=== PATIENT | female | born 2000 | race Caucasian/White ===

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

== ENCOUNTER 2018-06-30 09:07 | Inpatient (IN) ==
[2018-06-30] MEDS ORDERED: OXYTOCIN 30 UNITS/500 ML BAG IV PRN ×3 (10:30→20:33)
[2018-06-30] MEDS ORDERED: LACTATED RINGER'S 1,000 ML IV PRN ×3 (10:30→13:29)
--- NOTE | 2018-06-30 10:55 | History & Physical Report ---
Date of Service June 30, 2018 Assessment & Plan (1) Gestational hypertension: 17yo presenting at 37.4 weeks EGA with elevated BP and a severe headache and nausea of 3 days duration. -Currently meets criteria for gestational HTN -Will workup for preeclampsia- CBC, CMP, urine pr/cr -will induce with suero and anticipate History of Present Illness Chief Complaint: headache, nausea, dizzy, concerned about blood pressure Primary Care Provider: NO PCP Pt is a 17yo presenting at 37.4 weeks EGA with elevated BP and a severe headache and nausea of 3 days duration. Denies changes to vision, RUQ pain or LE swelling. She has an DARRELL of 07/17/2018 confirmed by first trimester US. Her has been complicated by a a dx of asthma treated with PRN albuterol and Ryan's/ Hypothyroidism treated with Levothyroxine 50mcg daily. She is B+, antibody negative, rubella immune, HbsAg negative, negative Glucose screens and negative Panorama screen. 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 Hypothyroid MTHFR gene mutation Seizures Social History marital status: Single Current Living Situation: Parent Other Information That Helps Us Care for You: No Feels Safe at Home: Yes Smoking Status: Never smoker Do You Dip or Chew Tobacco: No Second Hand Exposure: No Tobacco Cessation Education Requested by Patient: No Hx Alcohol Use: No Hx Substance Use: No Beliefs That Will Affect Care: None Preferred Language: Romansh Communication Ability: Effective Chrome Plater Required: No Review of Systems Eyes: no problem reported Ear, Nose, Mouth, Throat: no nasal congestion Respiratory: no dyspnea Cardiovascular: no chest pain, no edema and no calf pain Gastrointestinal: + nausea; no vomiting Neurologic: + headache(s) Physical Exam 2 Vital Signs (Past 24 Hours): Last Vital Signs Temp 37.0 C 06/30/18 09:24 Pulse 96 H 06/30/18 10:25 Resp 20 06/30/18 09:24 BP 154/99 H 06/30/18 10:25 Eyes: EOM intact bilaterally Respiratory: normal respiratory effort, lungs clear to auscultation Cardiovascular: RRR, no murmur, no edema Gastrointestinal (Abdomen): Percussion/Palpation: abdomen nontender Musculoskeletal: Extremities: extremities normal to inspection Neurologic: CN's II-XI intact bilaterally, deep tendon reflexes 2+ bilaterally (NO clonus) and moves all extremities Cranial Nerves: PERRL and EOM intact bilaterally Genitourinary: Manual OB Exam: + cervical dilation 1 cm, + cervical effacement 70% and + station (-2) Supervising Physician Co-Signing Physician Notes Resident Physician Supervision Note: I was present with Dr. Love during the history and exam. I discussed the case with the resident and agree with the findings and plan as documented in the note. Any exceptions or clarifications are listed here: 17yo at 37wks presented as noted above. Was seen in office last week with elevated bp. Today' s bp are by >4hr and meet criteria for gestational hypertension at least and warrant moving towards delivery. Pt having GALVIN but did not try any meds. She feels unwell, dizzy and nausea also since the weekend and came to hospital without calling and was sent to L&D. She is agreeable to induction. Discussed suero ripening and pitocin. May meet criteria for mild preeclampsia, labs and more data not available yet. Pt aware that would not change our recommendations for induction. Will offer tylenol. Fhts categ 1. SVE /-2 med mid. EFW 7#. Cephalic by Leopolds and on sve. DTRs +2, no clonus, no ruq or epig pain. LE edema trace. OBH: g1 GYNH: nl paps, no stds PMH: hypothyroid, asthma, MTHFR mutation, h/o cerebral hemorrhage at her delivery and then febrile seizure at age 1. no residual issues with either of those past dx. PSH: none Allg: nkda Meds: levothyroxine 50mcg, albuterol prn. SH: no tob/etoh/drugs FH: no brian anom or mr PROCEDURE: speculum placed. ring forcep to ant cx lip. suero through os and balloon inflated with 40cc water. spec removed. suero taped to leg. pt maite well. A/ 37wk ega, gest htn P/ induction with suero and pitocin. fhts categ 1. labs pending. Documented By: Caprice Russo MD, FACOG
[2018-06-30 11:01] LABS: Hematocrit (blood only) 39.9 % (37-47); Hemoglobin 13.9 g/dL (12.0-16.0); Mean Corpuscular Volume 94.8 fL (80-100); Mean Platelet Volume 11.8 fL (7.4-10.4); Platelet Count 179 K/uL (130-400); RDW Coefficient of Variation 12.9 % (11.5-14.5); Red Blood Count 4.21 M/uL (4.2-5.4); White Blood Count 8.65 K/uL (4.8-10.8)
[2018-06-30] MEDS ORDERED: ACETAMINOPHEN SOL 650 MG/20.3 ML UDC PO ONE (11:11)
[2018-06-30 11:16] LABS: Mean Corpuscular Hgb Conc 34.8 g/dL (32-36)
[2018-06-30] MEDS: LACTATED RINGER'S 1,000 ML IV SCH ×2 (11:16→14:33)
[2018-06-30 11:19] LABS: Albumin Level 2.7 gm/dl (3.4-5.0); BUN Creatinine Ratio 10.9 (10-20); Calcium 9.1 mg/dl (8.5-10.1); Creatinine Clr Calc Pharmacy 131.6 ml/min; Est GFR (African American) 140.7; Est GFR (Non-African American) 121.4; Potassium 4.4 mmol/L (3.5-5.1)
[2018-06-30 11:21] LABS: Albumin Globulin Ratio 0.6 (0.9-2); Bilirubin,Total 0.2 mg/dl (0.2-1); Globulin 4.3 gm/dl (2.5-4.0)
[2018-06-30] MEDS ORDERED: NIFEdipine 10 MG CAP PO STA ×2 (11:51→19:09)
[2018-06-30 11:57] LABS: Total Protein Urine Random 70.4 mg/dl (0-11.9)
[2018-06-30] MEDS ORDERED: NIFEdipine 10 MG CAP ONE (12:05)
[2018-06-30] MEDS ORDERED: PROMETHAZINE HCL 25 MG in SODIUM CHLORIDE 0.9% 50 ML IV STA (12:05)
--- NOTE | 2018-06-30 12:17 | Obstetrical Progress Note ---
Date of Service June 30, 2018 Assessment & Plan (1) Gestational hypertension: some bps in severe range and po procardia given. most recent bp was even before procardia and was better. pt anxious. given her nausea will give phergan and offered to use stadol or epidural for pain management when she wants. labs normal. urine protein/creat ration just at .3. If severe bps persist with or without akhtar's may need to initiate magnesium. patient and mother aware. fhts categ 1 (2) 37 weeks gestation of : Subjective pt notes nausea and asking for med. feeling strong cramps. no rom. Physical Exam 2 Vital Signs (Past 24 Hours): Last Vital Signs Temp 37.0 C 06/30/18 11:22 Pulse 98 H 06/30/18 12:01 Resp 20 06/30/18 11:22 BP 148/101 H 06/30/18 12:01 Constitutional: WD/WN, vitals as above Genitourinary: Manual OB Exam: + cervical dilation (balloon still through ext os ) 2 cm, + cervical effacement (75) and + station (no able to assess well with balloon) OB Exam Monitor Tracing: + external FHT monitor used (135 mod variability), + external uterine monitor used (q2-4), + category I and + normal FHT variability
[2018-06-30] MEDS ORDERED: BUPIVACAINE 0.25% 30 ML VIAL ONE (12:30)
[2018-06-30] MEDS ORDERED: fentaNYL citrate 100 MCG/2 ML VIAL ONE ×2 (12:30→18:40)
[2018-06-30] MEDS ORDERED: ePHEDrine sulfate 50 MG/ML AMP ONE (12:30)
[2018-06-30] MEDS ORDERED: fentaNYL 2MCG/ML ROPIV 1.25MG/ML 100 ML BAG EPI ONE (12:31)
--- NOTE | 2018-06-30 13:27 | Anesthesiology Consultation ---
Date of Service June 30, 2018 Assessment & Plan (1) Encounter for pre-operative examination: Chart Review Chart Review: Acceptable Risk for Labor Epidural Consults Requested none ASA [id number] Proposed Anesthesia Anesthesia Type: Labor Epidural NPO Date Last Intake of Fluids: 06/30/18 Time Last Intake of Fluids: 12:00 Date Last Intake of Solids: 06/30/18 Time Last Intake of Solids: 00:00 History Height/Weight Height: 5 ft 2 in Weight: 90.718 kg Allergies Allergy/AdvReac Type Severity Reaction Status Date / Time pollen extracts Allergy Intermediate ITCHY, Verified 06/30/18 09:30 WATERY EYES, SNEEZING, CONGESTION RAW FRUITS Allergy Severe THROAT Uncoded 06/30/18 09:30 SWELLS, HIVES RAW VEGETABLES Allergy Severe THROAT Uncoded 06/30/18 09:30 SWELLS, HIVES Medications Home Medications Medication Instructions Recorded Confirmed Last Taken levothyroxine 50 mcg PO DAILY 06/30/18 06/30/18 06/30/18 07:00 vit-iron fum-folic ac 1 tab PO DAILY 06/30/18 06/30/18 06/29/18 20:30 [ Vitamin] Active Medications Generic Name Dose Route Start Last Admin Trade Name Freq PRN Reason Stop Dose Admin Lactated Ringer's 1,000 mls @ 125 mls/hr 06/30/18 10:30 06/30/18 12:20 Lr IV 07/02/18 10:29 999 mls/hr .Q8H RANJANA Infusion Oxytocin 30 units in 500 mls @ 3 mls/hr 06/30/18 10:47 06/30/18 12:00 Pitocin IV 07/02/18 10:46 0.18 units/hr .Q24H PRN 3 mls/hr Labor Induction/Augmentation Titration Protocol 0.18 UNITS/HR Past Medical History Medical History 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
[2018-06-30] MEDS ORDERED: NALOXONE HCL 0.4 MG/1 ML VIAL/CARP IV PRN (13:29)
[2018-06-30] MEDS ORDERED: NALOXONE HCL 1 MG in SODIUM CHLORIDE 0.9% 1000ML 1,000 ML IV PRN (13:29)
[2018-06-30] MEDS ORDERED: NALBUPHINE HCL INJ 10 MG/ML AMP IV PRN (13:29)
[2018-06-30] MEDS ORDERED: ePHEDrine sulfate 50 MG/ML AMP IV PRN (13:29)
[2018-06-30] MEDS ORDERED: fentaNYL 2MCG/ML ROPIV 1.25MG/ML 100 ML BAG EPI PRN (13:29)
[2018-06-30] MEDS ORDERED: DiphenhydrAMINE HCL 50 MG/ML VIAL IV PRN (13:29)
--- NOTE | 2018-06-30 14:35 | Obstetrical Progress Note ---
Date of Service June 30, 2018 Assessment & Plan (1) 37 weeks gestation of : (2) Gestational hypertension: since epidural no severe bps. pt nausea improved spont and she declined phenergan. fhts categ 1. will see how labor pattern augmented by arom and c/w pit. pt and partner deny any questions. Subjective comfortable with epidural. denies akhtar or nausea Physical Exam 2 Vital Signs (Past 24 Hours): Last Vital Signs Temp 36.9 C 06/30/18 13:21 Pulse 106 H 06/30/18 14:31 Resp 18 06/30/18 14:00 BP 125/68 06/30/18 14:31 Pulse Ox 100 06/30/18 14:27 Constitutional: WD/WN, vitals as above Genitourinary: Manual OB Exam: + cervical dilation 4 cm, + cervical effacement 80%, + station -2 and + amniotic fluid (AROM) clear OB Exam Monitor Tracing: + external FHT monitor used (mod variability), + external uterine monitor used (q2, pit at 3) and + category I suero balloon in vagina and deflated and removed.
[2018-06-30] MEDS ORDERED: ACETAMINOPHEN 325 MG TAB ONE (16:43)
[2018-06-30] MEDS ORDERED: ACETAMINOPHEN 325 MG TAB PO STA (16:58)
[2018-06-30] MEDS ORDERED: LIDOCAINE HCL 2% MPF (LOCAL) 5 ML VIAL INFIL ONE (18:40)
--- NOTE | 2018-06-30 19:12 | Obstetrical Progress Note ---
Date of Service June 30, 2018 Assessment & Plan (1) 37 weeks gestation of : (2) Gestational hypertension: was having pain and tearful with elevated sbp >160, since persists despite rebolus helping, will dose with nifedipine now. monitor bps. expect 2nd stage soon. fhts categ 2. Subjective went to see patient, just examined by nurse and 9cm, tearful as she was in pain and now had epidural redosed and waiting to see impact. denies akhtar Physical Exam 2 Vital Signs (Past 24 Hours): Last Vital Signs Temp 36.7 C 06/30/18 16:59 Pulse 107 H 06/30/18 19:07 Resp 16 06/30/18 18:01 BP 172/98 H 06/30/18 19:07 Pulse Ox 100 06/30/18 19:07 Constitutional: WD/WN, vitals as above Genitourinary: Manual OB Exam: + cervical dilation (per nurse) 9 cm OB Exam Monitor Tracing: + external FHT monitor used (150 mod variability), + external uterine monitor used (q2-3), + category II, + normal FHT variability and + variable decelerations
[2018-06-30] MEDS ORDERED: BENZOCAINE 20% AER SPR 82.5 GM CAN EXT PRN (20:33)
[2018-06-30] MEDS ORDERED: ACETAMINOPHEN 325 MG TAB PO PRN (20:33)
[2018-06-30] MEDS ORDERED: DIPHTHERIA/TETANUS/PERTUSSIS 0.5 ML SYR/VIAL IM ONE (20:33)
[2018-06-30] MEDS ORDERED: HYDROCORTISONE ACETATE 25 MG SUPP PR PRN (20:33)
[2018-06-30] MEDS ORDERED: SUPERCREAM 0.870% 15 GM JAR EXT PRN (20:33)
[2018-06-30] MEDS ORDERED: OXYTOCIN 20 UNITS in LACTATED RINGER'S 1,000 ML IV SCH (20:33)
[2018-06-30] MEDS ORDERED: OXYCODONE/ACETAMINOPHEN 5mg/325mg TAB PO PRN (20:33)
--- NOTE | 2018-06-30 21:32 | Delivery Summary ---
DATE OF OPERATION: 06/30/2018 The patient dilated to complete and pushed to deliver a viable female infant, Apgars 7 and 9 via over intact perineum. Mouth and nose bulb suctioned at the perineum. Loose nuchal cord x3 reduced. The shoulders and body delivered with ease. Infant vigorous and crying at . Cord clamped at 30 seconds of life and infant to maternal abdomen where the cord was then doubly clamped and cut. Placenta was delivered spontaneously intact, 3-vessel cord. Hemostasis achieved with dilute Pitocin as well as bimanual massage. Cervix and sulci intact. Small periurethral excoriations noted, but hemostatic and not repaired. EBL 300 mL. Mother and baby stable in recovery. I attest to the content of the Intraoperative Record and any orders documented therein. Any exception s are noted below.
[2018-06-30] MEDS: IBUPROFEN 600 MG TAB PO PRN (23:08)
[2018-06-30] MEDS: LABETALOL HCL 100 MG TAB PO SCH (23:18)
[2018-07-01] MEDS: DOCUSATE SODIUM 100 MG CAP PO SCH ×3 (00:06→20:44)
[2018-07-01] MEDS: LEVOTHYROXINE SODIUM 50 MCG TABLET PO SCH (06:01)
[2018-07-01 06:48] LABS: Hematocrit (blood only) 34.1 % (37-47); Hemoglobin 11.8 g/dL (12.0-16.0); Mean Corpuscular Hgb Conc 34.6 g/dL (32-36); Mean Platelet Volume 11.4 fL (7.4-10.4); Platelet Count 142 K/uL (130-400); RDW Coefficient of Variation 12.8 % (11.5-14.5); RDW Standard Deviation 44.4 fL (36.4-46.3); Red Blood Count 3.59 M/uL (4.2-5.4); White Blood Count 11.93 K/uL (4.8-10.8)
--- NOTE | 2018-07-01 07:15 | Obstetrical Progress Note ---
Date of Service <Jonna Love MD - Last Filed: 07/01/18 07:18> July 01, 2018 Assessment & Plan <Jonna Love MD - Last Filed: 07/01/18 07:18> (1) Gestational hypertension: 17yo presenting at 37.4 weeks EGA with gestational HTN and . PPD#1 Routine Care: -ambulation as tolerated -Food and hydration -Pain control Gestational HTN -BPs controlled currently -Asymptomatic -will continue to monitor Subjective <Jonna Love MD - Last Filed: 07/01/18 07:18> Ambulation: ambulating normally Voiding: no voiding problems Passing Gas:: Yes Diet Tolerance:: regular diet Lochia:: Moderate Feeding Type:: breast feeding Current Pain Level(1-10): 0 Constitutional: no fever and no chills Eyes: no problem reported Respiratory: no dyspnea Cardiovascular: no chest pain, no palpitations, no lightheadedness, no edema and no calf pain Gastrointestinal: no nausea and no vomiting Genitourinary (female): no dysuria Neurologic: no headache(s) Physical Exam <Jonna Love MD - Last Filed: 07/01/18 07:18> Vital Signs (Past 24 Hours) Last Vital Signs Temp 36.4 C L 07/01/18 03:10 Pulse 88 07/01/18 03:10 Resp 18 07/01/18 03:10 BP 136/85 07/01/18 03:10 Pulse Ox 85 L 06/30/18 20:25 Eyes EOM intact bilaterally Respiratory normal respiratory effort, lungs clear to auscultation Cardiovascular RRR, no murmur, no edema Extremities: no calf tenderness and no pedal edema Genitourinary OB Exam Abdomen: + fundal height Fundus: + firm and + relation to umbilicus (1 below); not tender and not boggy Results & Data <Jonna Love MD - Last Filed: 07/01/18 07:18> Laboratory Results Laboratory Results - last 24 hr 06/30/18 06/30/18 06/30/18 09:15 10:48 10:48 WBC 8.65 RBC 4.21 Hgb 13.9 Hct 39.9 MCV 94.8 MCH 33.0 MCHC 34.8 RDW Std Deviation 44.0 RDW Coeff of Gilda 12.9 Plt Count 179 MPV 11.8 H Sodium 137 Potassium 4.4 Chloride 110 H Carbon Dioxide 18 L Anion Gap 9.0 BUN 8 Creatinine 0.72 Est Cr Clr Drug Dosing 131.6 Est GFR ( Amer) 140.7 Est GFR (Non-Af Amer) 121.4 BUN/Creatinine Ratio 10.9 Glucose 78 Calcium 9.1 Total Bilirubin 0.2 AST 19 ALT 15 Alkaline Phosphatase 204 H Total Protein 7.0 Albumin 2.7 L Globulin 4.3 H Albumin/Globulin Ratio 0.6 L Ur Random Creatinine 221.0 U Random Total Protein 70.4 H Protein/Creatinin Ratio 0.3 H 07/01/18 06:17 WBC 11.93 H RBC 3.59 L Hgb 11.8 L Hct 34.1 L MCV 95.0 MCH 32.9 MCHC 34.6 RDW Std Deviation 44.4 RDW Coeff of Gilda 12.8 Plt Count 142 MPV 11.4 H Sodium Potassium Chloride Carbon Dioxide Anion Gap BUN Creatinine Est Cr Clr Drug Dosing Est GFR ( Amer) Est GFR (Non-Af Amer) BUN/Creatinine Ratio Glucose Calcium Total Bilirubin AST ALT Alkaline Phosphatase Total Protein Albumin Globulin Albumin/Globulin Ratio Ur Random Creatinine U Random Total Protein Protein/Creatinin Ratio Medications Administered Home Medications levothyroxine 50 mcg PO DAILY 06/30/18 [History Confirmed 06/30/18] vit-iron fum-folic ac [ Vitamin] 1 tab PO DAILY 06/30/18 [ History Confirmed 06/30/18] Active Medications Acetaminophen (Tylenol) 650 mg PO Q6H PRN PRN Reason: Pain/GALVIN/Fever Stop: 07/30/18 20:32 Last Admin: 07/01/18 00:11 Dose: 650 mg Benzocaine (Dermoplast Pain Relieving [place]) 1 appln EXT PRN PRN PRN Reason: Perineal Discomfort Stop: 07/30/18 20:32 Cocaine HCl (Supercream 0.870%) 1 gm EXT BID PRN PRN Reason: Hemorrhoidal Inflammation Stop: 07/14/18 20:32 Docusate Sodium (Colace) 100 mg PO BID RANJANA Stop: 07/30/18 20:59 Last Admin: 07/01/18 00:06 Dose: Not Given Hydrocortisone (Anusol Hc) 25 mg NV BID PRN PRN Reason: Hemorrhoidal Inflammation Stop: 07/30/18 20:32 Oxytocin 20 units/ Lactated (Ringer's) 1,002 mls @ 125 mls/hr IV .Q8H1M [facility] Stop: 07/30/18 20:32 Last Infusion: 07/01/18 06:25 Dose: Infused Oxytocin (Pitocin) 30 units in 500 mls @ 333.333 mls/hr IV .Q1H30M PRN; Protocol PRN Reason: BLEEDING CONTROL Stop: 07/30/18 20:32 Ibuprofen (Motrin) 600 mg PO Q4H PRN PRN Reason: Pain/GALVIN/Cramping/Fever Stop: 07/30/18 20:32 Last Admin: 06/30/18 23:08 Dose: 600 mg Labetalol HCl (Normodyne) 100 mg PO BID [facility] Stop: 07/30/18 22:59 Last Admin: 06/30/18 23:18 Dose: 100 mg Levothyroxine Sodium (Synthroid) 50 mcg PO DAILYBB [facility] Stop: 07/31/18 06:29 Last Admin: 07/01/18 06:01 Dose: 50 mcg Oxycodone/Acetaminophen (Percocet 5mg/325mg) 1 tab PO Q4H PRN PRN Reason: Pain not relieved by... Stop: 07/14/18 20:32 Prenat Multivit/[place]/Iron/Folic Ac ( Vitamin) 1 tab PO QAM [facility] Stop: 07/31/18 08:59 <Caprice Russo MD, FACOG - Last Filed: 07/01/18 08:01> Co-Signing Physician Notes Resident Physician Supervision Note: I interviewed and examined the patient. Discussed with Dr. Love and agree with findings and plan as documented in the note. Any exceptions or clarifications are listed here: Doing well. Feels better. No galvin, visual change. No n/v/cp or sob. BPs are ok today so far on Labetalol. Baby well, breast feeding. Voiding, ambul and eating without problem. Routine care. Documented By: Caprice Russo MD, FACOG
[2018-07-01] MEDS: PRENATAL VITAMIN 1 TAB PO SCH (09:22)
[2018-07-01] MEDS: LABETALOL HCL 100 MG TAB PO SCH ×2 (09:23→20:44)
[2018-07-01] MEDS: IBUPROFEN 600 MG TAB PO PRN (13:21)
--- NOTE | 2018-07-02 06:57 | Obstetrical Progress Note ---
Date of Service <Jonna Love MD - Last Filed: 07/02/18 06:57> July 02, 2018 Assessment & Plan <Jonna Love MD - Last Filed: 07/02/18 06:57> (1) Gestational hypertension: 17yo presenting at 37.4 weeks EGA with gestational HTN and . PPD#2 Discharge today -Instructions reviewed Gestational HTN -BPs controlled currently -Asymptomatic -f/u in office Subjective <Jonna Love MD - Last Filed: 07/02/18 06:57> Ambulation: ambulating normally Voiding: voiding difficulty (feels incomplete emptying) Passing Gas:: Yes Diet Tolerance:: regular diet Lochia:: Moderate Feeding Type:: breast feeding Current Pain Level(1-10): 0 Eyes: no problem reported Respiratory: no dyspnea Cardiovascular: + edema; no chest pain, no palpitations and no calf pain Gastrointestinal: no nausea and no vomiting Genitourinary (female): + dysuria (one episode this AM) Neurologic: no headache(s) Physical Exam <Jonna Love MD - Last Filed: 07/02/18 06:57> Vital Signs (Past 24 Hours) Last Vital Signs Temp 36.6 C 07/02/18 00:45 Pulse 74 07/02/18 00:45 Resp 18 07/02/18 00:45 BP 129/88 07/02/18 00:45 Pulse Ox 98 07/01/18 16:40 Eyes EOM intact bilaterally Respiratory normal respiratory effort, lungs clear to auscultation Cardiovascular Rate/Rhythm: regular rate and regular rhythm Extremities: + pedal edema; no calf tenderness Neurologic moves all extremities Genitourinary OB Exam Abdomen: + fundal height Fundus: + firm; not tender and not boggy Results & Data <Jonna Lvoe MD - Last Filed: 07/02/18 06:57> Medications Administered Home Medications levothyroxine 50 mcg PO DAILY 06/30/18 [History Confirmed 06/30/18] vit-iron fum-folic ac [ Vitamin] 1 tab PO DAILY 06/30/18 [ History Confirmed 06/30/18] labetalol 100 mg PO BID #60 tab 07/02/18 [Rx] Active Medications Acetaminophen (Tylenol) 650 mg PO Q6H PRN PRN Reason: Pain/GALVIN/Fever Stop: 07/30/18 20:32 Last Admin: 07/01/18 00:11 Dose: 650 mg Benzocaine (Dermoplast Pain Relieving [place]) 1 appln EXT PRN PRN PRN Reason: Perineal Discomfort Stop: 07/30/18 20:32 Cocaine HCl (Supercream 0.870%) 1 gm EXT BID PRN PRN Reason: Hemorrhoidal Inflammation Stop: 07/14/18 20:32 Docusate Sodium (Colace) 100 mg PO BID [facility] Stop: 07/30/18 20:59 Last Admin: 07/01/18 20:44 Dose: 100 mg Hydrocortisone (Anusol Hc) 25 mg [place] BID PRN PRN Reason: Hemorrhoidal Inflammation Stop: 07/30/18 20:32 Oxytocin 20 units/ Lactated (Ringer's) 1,002 mls @ 125 mls/hr IV .Q8H1M [facility] Stop: 07/30/18 20:32 Last Infusion: 07/01/18 06:25 Dose: Infused Oxytocin (Pitocin) 30 units in 500 mls @ 333.333 mls/hr IV .Q1H30M PRN; Protocol PRN Reason: BLEEDING CONTROL Stop: 07/30/18 20:32 Ibuprofen (Motrin) 600 mg PO Q4H PRN PRN Reason: Pain/GALVIN/Cramping/Fever Stop: 07/30/18 20:32 Last Admin: 07/01/18 13:21 Dose: 600 mg Labetalol HCl (Normodyne) 100 mg PO BID [facility] Stop: 07/30/18 22:59 Last Admin: 07/01/18 20:44 Dose: 100 mg Levothyroxine Sodium (Synthroid) 50 mcg PO DAILYBB [facility] Stop: 07/31/18 06:29 Last Admin: 07/01/18 06:01 Dose: 50 mcg Oxycodone/Acetaminophen (Percocet 5mg/325mg) 1 tab PO Q4H PRN PRN Reason: Pain not relieved by... Stop: 07/14/18 20:32 Prenat Multivit/Training And Development Officer/Iron/Folic Ac ( Vitamin) 1 tab PO QAM [facility] Stop: 07/31/18 08:59 Last Admin: 07/01/18 09:22 Dose: 1 tab <Wiley Henson MD, FACOG - Last Filed: 07/02/18 07:01> Co-Signing Physician Notes Resident Physician Supervision Note: I interviewed and examined the patient. Discussed with Dr. Coyle and agree with findings and plan as documented in the note. Any exceptions or clarifications are listed here: [None] Documented By: Wiley Henson MD, FACOG
[2018-07-02] MEDS: LEVOTHYROXINE SODIUM 50 MCG TABLET PO SCH (06:59)
[2018-07-02] MEDS: PRENATAL VITAMIN 1 TAB PO SCH (08:21)
[2018-07-02] MEDS: LABETALOL HCL 100 MG TAB PO SCH (08:21)
[2018-07-02] MEDS: DOCUSATE SODIUM 100 MG CAP PO SCH (08:21)
[2018-07-02] MEDS: IBUPROFEN 600 MG TAB PO PRN (15:43)
== END 2018-07-02 15:55 | disposition home or self-care (01) | DRG 807 ==
LOC: OPB 09:07 → 4S1 09:10 → 4S2 07-01 00:25

== ENCOUNTER 2018-07-05 20:57 | Inpatient (IN) ==
[2018-07-05] MEDS ORDERED: MAGNESIUM SULFATE / D5W 1 GM/100 ML BAG IV ONE ×2 (22:15→23:56)
[2018-07-05] MEDS ORDERED: LABETALOL HCL IV 5 MG/ML 20ML IV STA ×3 (22:15→23:58)
[2018-07-05 22:35] LABS: Basophils # (auto) 0.04 K/uL (0-0.2); Basophils % (auto) 0.4 %; Eosinophils # (auto) 0.51 K/uL (0-0.5); Eosinophils % (auto) 4.7 %; Hematocrit (blood only) 38.9 % (37-47); Hemoglobin 13.7 g/dL (12.0-16.0); Immature Granulocytes % (auto) 0.9 %; Lymphocytes # (auto) 1.79 K/uL (1.2-3.4); Lymphocytes % (auto) 16.4 %; Mean Corpuscular Hgb Conc 35.2 g/dL (32-36); Mean Corpuscular Volume 96.5 fL (80-100); Mean Platelet Volume 9.6 fL (7.4-10.4); Monocytes # (auto) 0.53 K/uL (0.11-0.59); Monocytes % (auto) 4.8 %; Neutrophils # (auto) 7.97 K/uL (1.4-6.5); Neutrophils % (auto) 72.8 %; Platelet Count 224 K/uL (130-400); RDW Coefficient of Variation 12.6 % (11.5-14.5); RDW Standard Deviation 44.1 fL (36.4-46.3); Red Blood Count 4.03 M/uL (4.2-5.4); White Blood Count 10.94 K/uL (4.8-10.8)
[2018-07-05 22:52] LABS: Alanine Aminotransferase 49 U/L (12-78); Albumin Level 2.7 gm/dl (3.4-5.0); Aspartate Aminotransferase 31 U/L (15-37); Bilirubin Direct < 0.1 mg/dl (0-0.2); Blood Urea Nitrogen 12 mg/dl (7-18); C Reactive Protein 9.33 mg/dl (0-0.29); Calcium 9.3 mg/dl (8.5-10.1); Carbon Dioxide 25 mmol/L (21-32); Chloride 106 mmol/L (98-107); Creatinine Clr Calc Pharmacy 133.8 ml/min; Est GFR (Non-African American) 126.8; Glucose 83 mg/dl (70-99); Potassium 3.8 mmol/L (3.5-5.1); Sodium 139 mmol/L (136-145)
[2018-07-05 22:55] LABS: Alkaline Phosphatase 161 U/L (45-117); Bilirubin,Total 0.3 mg/dl (0.2-1); Total Protein 7.4 gm/dl (6.4-8.2)
[2018-07-05 22:57] LABS: Appearance Urine Clear (Clear); Bacteria Urine Automated Negative (Negative); Bilirubin Urine Negative (Negative); Blood Urine 3+ (Negative); Color Urine Yellow; Glucose Urine UA Negative (Negative); Ketones Urine Negative (Negative); Leukocyte Esterase Urine 2+ (Negative); Nitrite Urine Negative (Negative); Protein Urine Negative (Negative); Specific Gravity Urine 1.008 (1.000-1.030); Urobilinogen Urine Negative (Negative); WBC Urine Automated >30 /hpf (0-5); pH Urine 7.5 (4.5-7.5)
--- NOTE | 2018-07-05 23:07 | CT Scan Report ---
CT SCAN OF THE BRAIN WITHOUT IV CONTRAST CLINICAL HISTORY: Headache. COMPARISON STUDY: No priors. TECHNIQUE: Unenhanced axial CT scan of the brain is performed from the vertex to the skull base. A d ose lowering technique was utilized adhering to the principles of ALARA. CT DOSE: 537.48 mGy.cm FINDINGS: Brain parenchyma: There is indication between the posterior horn of the right lateral ventricle and t he extra-axial space. 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 There is no hemorrhage, mass effect, or evidence of acute territorial ischemia by CT criteria. Lopez-white matter differentiation is preserved. No extra-axial fluid collec tion is seen. Ventricles, sulci, cisterns: Normal in configuration. Intracranial vasculature: The visualized intracranial vasculature at the skull base is normal in appe arance. Calvarium: Unremarkable. Sinuses and mastoids: The visualized paranasal sinuses are clear. The mastoid air cells are well pneu matized. Orbits: The bony orbits are grossly intact. IMPRESSION: 1. No acute intracranial abnormality. 2. 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 Correlation with the patient's m edical history and any prior outside imaging studies is recommended. Electronically signed by: David Griffin M.D. 07/05/2018 11:06 PM
--- NOTE | 2018-07-05 23:21 | XRay Report ---
SINGLE VIEW CHEST CLINICAL HISTORY: Dizziness. FINDINGS: An AP, portable, upright chest radiograph is obtained. No prior studies are available for c omparison at the time of dictation. The examination is degraded by portable technique and patient rot ation. The cardiomediastinal silhouette is unremarkable. The lungs and pleural spaces are clear. No pneumothorax is seen. The bony thorax is grossly intact. IMPRESSION: No active disease in the chest. Electronically signed by: David Griffin M.D. 07/05/2018 11:19 PM
[2018-07-05 23:23] LABS: Fibrinogen 683 mg/dl (184-400); INR 0.9 (0.9-1.1); Partial Thromboplastin Ratio 0.9; Partial Thromboplastin Time 23.2 Seconds (21.0-31.0); Prothrombin Time 9.3 Seconds (9.0-12.0)
[2018-07-05] MEDS ORDERED: cefTRIAXone SODIUM 1,000 MG/50 ML BAG IV STA (23:56)
[2018-07-06] MEDS ORDERED: Nursing to Pharmacy Communication ONE (00:53)
[2018-07-06] MEDS ORDERED: MAGNESIUM SULFATE 4GM / WTR 100 ML BAG IV ONE ×2 (01:32→01:43)
[2018-07-06] MEDS ORDERED: LACTATED RINGER'S 1,000 ML IV SCH (01:32)
--- NOTE | 2018-07-06 01:40 | History & Physical Report ---
Date of Service July 06, 2018 Assessment & Plan (1) Pre-eclampsia: Given 5 days PP, diagnosis of exclusion is preeclampsia, BP in severe range. Has had a 10mg and a 20mg dose of labetolol which have decreased her pressures. Will give a total mag bolus of 4gm (has had 2 in the ED), suero for monitoring UOP. Will treat BPs again if needed with labetolol as it has worked. Will monitor closely. She is breast feeding so can either bring the baby in or can set her up for pumping. Explained the diagnosis to the patient who is accompanied by her step-father. Questions answered. Present on Admission?: Yes History of Present Illness Chief Complaint: elevated blood pressure and swelling Primary Care Provider: NO PCP Patient is a 17 delivered 5 days ago on 06/30. Patient had induction for GHTN. No hx of blood pressure issues prior to . At her 36 5/7 week visit had bps 140/100. Then presented to labor and delivery with complaints of a GALVIN and had elevated blood pressures and was induced for ghtn. Was d/c home a couple of days later on labetolol 100 mg bid. Patient was feeling ok today other than very fatigued as had little sleep. She woke up from a nap and noted that her face and eyes were swollen. Her mother took her blood pressure at home and was very elevated. She called me and I advised her to come to the ED. She notes that all of her symptoms were noted when she woke up from her nap this evening. She had a GALVIN, which is better now, mild. No n/v. Notes some blurry vision earlier, resolved now. No ruq pain, cp , sob. Notes she has been taking her meds regularly. Breast feeding. w/u in the ED revealed a neg Head CT for brain bleed. 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 Given that she is five days PP, was induced for GHTN, we have to assume this is preeclampsia with severe simone blood pressures and will admit for Mag prophylaxis and observation. Allergies Allergy/AdvReac Type Severity Reaction Status Date / Time pollen extracts Allergy Intermediate ITCHY, Verified 07/05/18 22:51 WATERY EYES, SNEEZING, CONGESTION RAW FRUITS Allergy Severe THROAT Uncoded 07/05/18 22:51 SWELLS, HIVES RAW VEGETABLES Allergy Severe THROAT Uncoded 07/05/18 22:51 SWELLS, HIVES Home Medications Home Medications Medication Instructions Recorded Confirmed Type levothyroxine 50 mcg PO DAILY 06/30/18 07/05/18 History vit-iron fum-folic ac 1 tab PO DAILY 06/30/18 07/05/18 History [ Vitamin] labetalol 100 mg PO BID #60 tab 07/02/18 07/05/18 Rx Patient History Medical History Gestational hypertension Asthma 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 Review of Systems All systems reviewed & are unremarkable except as noted in HPI & below Physical Exam 2 Vital Signs (Past 24 Hours): Last Vital Signs Temp 37.2 C 07/05/18 21:03 Pulse 106 H 07/06/18 01:02 Resp 18 07/06/18 01:02 BP 149/104 H 07/06/18 01:02 Pulse Ox 98 07/06/18 01:02 Constitutional: WD/WN, vitals as above Neck: supple Respiratory: Auscultation: lungs clear to auscultation bilaterally Cardiovascular: Rate/Rhythm: regular rate, regular rhythm and + tachycardic Extremities: + edema (trace edema of the bilateral lower extremities) Gastrointestinal (Abdomen): soft, nt, nd fundus palpable well below the umbilicus, nontender Neurologic: +3/2 DTRs, one beat of clonus on left, none on the right. _ (1) Pre-eclampsia Trimester: unspecified trimester Qualified Code(s): O14.90 - Unspecified pre- eclampsia, unspecified trimester
--- NOTE | 2018-07-06 02:33 | Emergency Department Note ---
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 The patient gave to a girl at 37 weeks on . She notes this was her first and everything went fine with the vaginal delivery. The patient states her blood pressure spiked and her head has been hurting She notes her vision has been blurry and she is numb all over. She states she is prescribed labetalol and took her last dose at 6 PM. She notes she is prescribed to take the 100 mg labetalol twice daily. The patient states she has a thyroid problem that was present before and notes she takes medications for that. She notes her [facility] doctor is Dr. Russo. She denies any tobacco or alcohol use. Home Medications Home Medications Medication Instructions Recorded Confirmed Type levothyroxine 50 mcg PO DAILY 06/30/18 07/05/18 History vit-iron fum-folic ac 1 tab PO DAILY 06/30/18 07/05/18 History [ Vitamin] labetalol 100 mg PO BID #60 tab 07/02/18 07/05/18 Rx Allergies Allergy/AdvReac Type Severity Reaction Status Date / Time pollen extracts Allergy Intermediate ITCHY, Verified 07/05/18 22:51 WATERY EYES, SNEEZING, CONGESTION RAW FRUITS Allergy Severe THROAT Uncoded 07/05/18 22:51 SWELLS, HIVES RAW VEGETABLES Allergy Severe THROAT Uncoded 07/05/18 22:51 SWELLS, HIVES Past Med/Surg History Medical History Gestational hypertension 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 and A total of 10 systems reviewed and were otherwise negative Physical Exam Vital Signs Vital Signs - 24 hr 07/05/18 21:03 07/05/18 21:49 07/05/18 22:00 Temperature 37.2 C Temperature Source Oral Sepsis Recent Fever Within 48 Hours No Sepsis New/Unexplained Change in Mental Status No Sepsis Action Taken by Nursing No Action Required Pulse Rate 125 H 110 H Pulse Rate [Apical] 115 H Pulse Rhythm Regular Regular Pulse Rhythm [Apical] Pulse Strength Normal Pulse Strength [Apical] Respiratory Rate 18 16 Respiratory Effort / Characteristics Non-Labored Spontaneous Respiratory Depth Normal Respiratory Pattern Regular Blood Pressure 162/115 H Blood Pressure [Right Arm] 180/120 H Blood Pressure Mean 130 Blood Pressure Mean [Right Arm] 140 Blood Pressure Position Sitting Blood Pressure Position [Right Arm] Pulse Oximetry 98 98 98 Oxygen Delivery Method Room Air Room Air Room Air 07/05/18 22:39 07/05/18 22:46 07/05/18 23:07 Temperature Temperature Source Sepsis Recent Fever Within 48 Hours Sepsis New/Unexplained Change in Mental Status Sepsis Action Taken by Nursing Pulse Rate Pulse Rate [Apical] 112 H 98 H Pulse Rhythm Pulse Rhythm [Apical] Regular Regular Pulse Strength Pulse Strength [Apical] Normal Normal Respiratory Rate 16 16 Respiratory Effort / Characteristics Non-Labored Non-Labored Respiratory Depth Normal Normal Respiratory Pattern Regular Regular Blood Pressure Blood Pressure [Right Arm] 171/130 H 162/115 H Blood Pressure Mean Blood Pressure Mean [Right Arm] 143 130 Blood Pressure Position Blood Pressure Position [Right Arm] Lying Lying Pulse Oximetry 98 98 97 Oxygen Delivery Method Room Air Room Air Room Air 07/05/18 23:22 07/06/18 00:28 07/06/18 01:02 Temperature Temperature Source Sepsis Recent Fever Within 48 Hours Sepsis New/Unexplained Change in Mental Status Sepsis Action Taken by Nursing Pulse Rate 106 H Pulse Rate [Apical] 101 H 105 H Pulse Rhythm Pulse Rhythm [Apical] Regular Regular Pulse Strength Pulse Strength [Apical] Normal Normal Respiratory Rate 16 16 18 Respiratory Effort / Characteristics Non-Labored Non-Labored Respiratory Depth Normal Normal Respiratory Pattern Regular Regular Blood Pressure 149/104 H Blood Pressure [Right Arm] 164/120 H 160/109 H Blood Pressure Mean Blood Pressure Mean [Right Arm] 134 126 Blood Pressure Position Blood Pressure Position [Right Arm] Lying Lying Pulse Oximetry 96 98 98 Oxygen Delivery Method Room Air Room Air Room Air 07/06/18 01:10 07/06/18 01:15 07/06/18 01:30 Temperature 37.3 C Temperature Source Oral Sepsis Recent Fever Within 48 Hours Sepsis New/Unexplained Change in Mental Status Sepsis Action Taken by Nursing Pulse Rate Pulse Rate [Apical] Pulse Rhythm Pulse Rhythm [Apical] Regular Pulse Strength Pulse Strength [Apical] Normal Respiratory Rate 18 18 18 Respiratory Effort / Characteristics Non-Labored Spontaneous Respiratory Depth Normal Respiratory Pattern Agonal Blood Pressure Blood Pressure [Right Arm] Blood Pressure Mean Blood Pressure Mean [Right Arm] Blood Pressure Position Blood Pressure Position [Right Arm] Lying Pulse Oximetry 98 Oxygen Delivery Method Room Air 07/06/18 01:31 07/06/18 01:45 07/06/18 01:46 Temperature Temperature Source Sepsis Recent Fever Within 48 Hours Sepsis New/Unexplained Change in Mental Status Sepsis Action Taken by Nursing Pulse Rate 103 H 97 H Pulse Rate [Apical] Pulse Rhythm Pulse Rhythm [Apical] Pulse Strength Pulse Strength [Apical] Respiratory Rate 18 Respiratory Effort / Characteristics Respiratory Depth Respiratory Pattern Blood Pressure 150/107 H 146/104 H Blood Pressure [Right Arm] Blood Pressure Mean Blood Pressure Mean [Right Arm] Blood Pressure Position Blood Pressure Position [Right Arm] Pulse Oximetry Oxygen Delivery Method 07/06/18 02:00 07/06/18 02:01 07/06/18 02:08 Temperature Temperature Source Sepsis Recent Fever Within 48 Hours Sepsis New/Unexplained Change in Mental Status Sepsis Action Taken by Nursing Pulse Rate 96 H 99 H Pulse Rate [Apical] Pulse Rhythm Pulse Rhythm [Apical] Pulse Strength Pulse Strength [Apical] Respiratory Rate 18 Respiratory Effort / Characteristics Respiratory Depth Respiratory Pattern Blood Pressure 146/101 H Blood Pressure [Right Arm] Blood Pressure Mean Blood Pressure Mean [Right Arm] Blood Pressure Position Blood Pressure Position [Right Arm] Pulse Oximetry 100 Oxygen Delivery Method 07/06/18 02:13 07/06/18 02:15 07/06/18 02:16 Temperature Temperature Source Sepsis Recent Fever Within 48 Hours Sepsis New/Unexplained Change in Mental Status Sepsis Action Taken by Nursing Pulse Rate 100 H 100 H Pulse Rate [Apical] Pulse Rhythm Pulse Rhythm [Apical] Pulse Strength Pulse Strength [Apical] Respiratory Rate 18 Respiratory Effort / Characteristics Respiratory Depth Respiratory Pattern Blood Pressure 147/103 H Blood Pressure [Right Arm] Blood Pressure Mean Blood Pressure Mean [Right Arm] Blood Pressure Position Blood Pressure Position [Right Arm] Pulse Oximetry 100 Oxygen Delivery Method 07/06/18 02:18 07/06/18 02:20 07/06/18 02:23 Temperature Temperature Source Sepsis Recent Fever Within 48 Hours Sepsis New/Unexplained Change in Mental Status Sepsis Action Taken by Nursing Pulse Rate 102 H 100 H Pulse Rate [Apical] Pulse Rhythm Pulse Rhythm [Apical] Pulse Strength Pulse Strength [Apical] Respiratory Rate 18 Respiratory Effort / Characteristics Respiratory Depth Respiratory Pattern Blood Pressure Blood Pressure [Right Arm] Blood Pressure Mean Blood Pressure Mean [Right Arm] Blood Pressure Position Blood Pressure Position [Right Arm] Pulse Oximetry 100 100 Oxygen Delivery Method 07/06/18 02:28 07/06/18 02:31 07/06/18 02:33 Temperature Temperature Source Sepsis Recent Fever Within 48 Hours Sepsis New/Unexplained Change in Mental Status Sepsis Action Taken by Nursing Pulse Rate 97 H 93 H 92 H Pulse Rate [Apical] Pulse Rhythm Pulse Rhythm [Apical] Pulse Strength Pulse Strength [Apical] Respiratory Rate Respiratory Effort / Characteristics Respiratory Depth Respiratory Pattern Blood Pressure 148/93 H Blood Pressure [Right Arm] Blood Pressure Mean Blood Pressure Mean [Right Arm] Blood Pressure Position Blood Pressure Position [Right Arm] Pulse Oximetry 99 100 Oxygen Delivery Method 07/06/18 02:38 07/06/18 02:43 07/06/18 02:46 Temperature Temperature Source Sepsis Recent Fever Within 48 Hours Sepsis New/Unexplained Change in Mental Status Sepsis Action Taken by Nursing Pulse Rate 95 H 104 H 90 Pulse Rate [Apical] Pulse Rhythm Pulse Rhythm [Apical] Pulse Strength Pulse Strength [Apical] Respiratory Rate Respiratory Effort / Characteristics Respiratory Depth Respiratory Pattern Blood Pressure 151/93 H Blood Pressure [Right Arm] Blood Pressure Mean Blood Pressure Mean [Right Arm] Blood Pressure Position Blood Pressure Position [Right Arm] Pulse Oximetry 99 100 Oxygen Delivery Method 07/06/18 02:48 07/06/18 02:53 07/06/18 02:58 Temperature Temperature Source Sepsis Recent Fever Within 48 Hours Sepsis New/Unexplained Change in Mental Status Sepsis Action Taken by Nursing Pulse Rate 87 96 H 95 H Pulse Rate [Apical] Pulse Rhythm Pulse Rhythm [Apical] Pulse Strength Pulse Strength [Apical] Respiratory Rate Respiratory Effort / Characteristics Respiratory Depth Respiratory Pattern Blood Pressure Blood Pressure [Right Arm] Blood Pressure Mean Blood Pressure Mean [Right Arm] Blood Pressure Position Blood Pressure Position [Right Arm] Pulse Oximetry 99 99 100 Oxygen Delivery Method 07/06/18 03:00 07/06/18 03:01 07/06/18 03:03 Temperature Temperature Source Sepsis Recent Fever Within 48 Hours Sepsis New/Unexplained Change in Mental Status Sepsis Action Taken by Nursing Pulse Rate 90 94 H Pulse Rate [Apical] Pulse Rhythm Pulse Rhythm [Apical] Pulse Strength Pulse Strength [Apical] Respiratory Rate 18 Respiratory Effort / Characteristics Respiratory Depth Respiratory Pattern Blood Pressure 155/93 H Blood Pressure [Right Arm] Blood Pressure Mean Blood Pressure Mean [Right Arm] Blood Pressure Position Blood Pressure Position [Right Arm] Pulse Oximetry 99 Oxygen Delivery Method 07/06/18 03:08 07/06/18 03:13 07/06/18 03:16 Temperature Temperature Source Sepsis Recent Fever Within 48 Hours Sepsis New/Unexplained Change in Mental Status Sepsis Action Taken by Nursing Pulse Rate 97 H 91 H 103 H Pulse Rate [Apical] Pulse Rhythm Pulse Rhythm [Apical] Pulse Strength Pulse Strength [Apical] Respiratory Rate Respiratory Effort / Characteristics Respiratory Depth Respiratory Pattern Blood Pressure 186/88 H Blood Pressure [Right Arm] Blood Pressure Mean Blood Pressure Mean [Right Arm] Blood Pressure Position Blood Pressure Position [Right Arm] Pulse Oximetry 98 98 Oxygen Delivery Method 07/06/18 03:18 07/06/18 03:20 07/06/18 03:22 Temperature Temperature Source Sepsis Recent Fever Within 48 Hours Sepsis New/Unexplained Change in Mental Status Sepsis Action Taken by Nursing Pulse Rate 91 H 93 H Pulse Rate [Apical] Pulse Rhythm Pulse Rhythm [Apical] Pulse Strength Pulse Strength [Apical] Respiratory Rate 18 Respiratory Effort / Characteristics Respiratory Depth Respiratory Pattern Blood Pressure 149/83 H Blood Pressure [Right Arm] Blood Pressure Mean Blood Pressure Mean [Right Arm] Blood Pressure Position Blood Pressure Position [Right Arm] Pulse Oximetry 99 Oxygen Delivery Method 07/06/18 03:23 07/06/18 03:28 07/06/18 03:33 Temperature Temperature Source Sepsis Recent Fever Within 48 Hours Sepsis New/Unexplained Change in Mental Status Sepsis Action Taken by Nursing Pulse Rate 96 H 95 H 96 H Pulse Rate [Apical] Pulse Rhythm Pulse Rhythm [Apical] Pulse Strength Pulse Strength [Apical] Respiratory Rate Respiratory Effort / Characteristics Respiratory Depth Respiratory Pattern Blood Pressure Blood Pressure [Right Arm] Blood Pressure Mean Blood Pressure Mean [Right Arm] Blood Pressure Position Blood Pressure Position [Right Arm] Pulse Oximetry 93 97 96 Oxygen Delivery Method 07/06/18 03:38 07/06/18 03:43 07/06/18 03:48 Temperature Temperature Source Sepsis Recent Fever Within 48 Hours Sepsis New/Unexplained Change in Mental Status Sepsis Action Taken by Nursing Pulse Rate 97 H 95 H 94 H Pulse Rate [Apical] Pulse Rhythm Pulse Rhythm [Apical] Pulse Strength Pulse Strength [Apical] Respiratory Rate Respiratory Effort / Characteristics Respiratory Depth Respiratory Pattern Blood Pressure Blood Pressure [Right Arm] Blood Pressure Mean Blood Pressure Mean [Right Arm] Blood Pressure Position Blood Pressure Position [Right Arm] Pulse Oximetry 97 97 97 Oxygen Delivery Method 07/06/18 03:51 07/06/18 03:53 07/06/18 03:56 Temperature Temperature Source Sepsis Recent Fever Within 48 Hours Sepsis New/Unexplained Change in Mental Status Sepsis Action Taken by Nursing Pulse Rate 113 H 98 H 104 H Pulse Rate [Apical] Pulse Rhythm Pulse Rhythm [Apical] Pulse Strength Pulse Strength [Apical] Respiratory Rate Respiratory Effort / Characteristics Respiratory Depth Respiratory Pattern Blood Pressure 153/85 H Blood Pressure [Right Arm] Blood Pressure Mean Blood Pressure Mean [Right Arm] Blood Pressure Position Blood Pressure Position [Right Arm] Pulse Oximetry 97 93 Oxygen Delivery Method 07/06/18 03:58 07/06/18 04:03 07/06/18 04:08 Temperature Temperature Source Sepsis Recent Fever Within 48 Hours Sepsis New/Unexplained Change in Mental Status Sepsis Action Taken by Nursing Pulse Rate 92 H 92 H 93 H Pulse Rate [Apical] Pulse Rhythm Pulse Rhythm [Apical] Pulse Strength Pulse Strength [Apical] Respiratory Rate Respiratory Effort / Characteristics Respiratory Depth Respiratory Pattern Blood Pressure Blood Pressure [Right Arm] Blood Pressure Mean Blood Pressure Mean [Right Arm] Blood Pressure Position Blood Pressure Position [Right Arm] Pulse Oximetry 97 97 97 Oxygen Delivery Method 07/06/18 04:13 07/06/18 04:18 07/06/18 04:21 Temperature Temperature Source Sepsis Recent Fever Within 48 Hours Sepsis New/Unexplained Change in Mental Status Sepsis Action Taken by Nursing Pulse Rate 95 H 97 H 109 H Pulse Rate [Apical] Pulse Rhythm Pulse Rhythm [Apical] Pulse Strength Pulse Strength [Apical] Respiratory Rate Respiratory Effort / Characteristics Respiratory Depth Respiratory Pattern Blood Pressure 138/98 Blood Pressure [Right Arm] Blood Pressure Mean Blood Pressure Mean [Right Arm] Blood Pressure Position Blood Pressure Position [Right Arm] Pulse Oximetry 98 97 Oxygen Delivery Method 07/06/18 04:23 07/06/18 04:28 07/06/18 04:33 Temperature Temperature Source Sepsis Recent Fever Within 48 Hours Sepsis New/Unexplained Change in Mental Status Sepsis Action Taken by Nursing Pulse Rate 90 93 H 92 H Pulse Rate [Apical] Pulse Rhythm Pulse Rhythm [Apical] Pulse Strength Pulse Strength [Apical] Respiratory Rate 16 Respiratory Effort / Characteristics Respiratory Depth Respiratory Pattern Blood Pressure Blood Pressure [Right Arm] Blood Pressure Mean Blood Pressure Mean [Right Arm] Blood Pressure Position Blood Pressure Position [Right Arm] Pulse Oximetry 97 98 97 Oxygen Delivery Method 07/06/18 04:38 07/06/18 04:43 07/06/18 04:48 Temperature Temperature Source Sepsis Recent Fever Within 48 Hours Sepsis New/Unexplained Change in Mental Status Sepsis Action Taken by Nursing Pulse Rate 98 H 94 H 92 H Pulse Rate [Apical] Pulse Rhythm Pulse Rhythm [Apical] Pulse Strength Pulse Strength [Apical] Respiratory Rate Respiratory Effort / Characteristics Respiratory Depth Respiratory Pattern Blood Pressure Blood Pressure [Right Arm] Blood Pressure Mean Blood Pressure Mean [Right Arm] Blood Pressure Position Blood Pressure Position [Right Arm] Pulse Oximetry 97 97 97 Oxygen Delivery Method 07/06/18 04:51 07/06/18 04:53 07/06/18 04:58 Temperature Temperature Source Sepsis Recent Fever Within 48 Hours Sepsis New/Unexplained Change in Mental Status Sepsis Action Taken by Nursing Pulse Rate 88 90 92 H Pulse Rate [Apical] Pulse Rhythm Pulse Rhythm [Apical] Pulse Strength Pulse Strength [Apical] Respiratory Rate Respiratory Effort / Characteristics Respiratory Depth Respiratory Pattern Blood Pressure 151/90 H Blood Pressure [Right Arm] Blood Pressure Mean Blood Pressure Mean [Right Arm] Blood Pressure Position Blood Pressure Position [Right Arm] Pulse Oximetry 97 98 Oxygen Delivery Method 07/06/18 05:03 07/06/18 05:08 07/06/18 05:13 Temperature Temperature Source Sepsis Recent Fever Within 48 Hours Sepsis New/Unexplained Change in Mental Status Sepsis Action Taken by Nursing Pulse Rate 96 H 90 93 H Pulse Rate [Apical] Pulse Rhythm Pulse Rhythm [Apical] Pulse Strength Pulse Strength [Apical] Respiratory Rate Respiratory Effort / Characteristics Respiratory Depth Respiratory Pattern Blood Pressure Blood Pressure [Right Arm] Blood Pressure Mean Blood Pressure Mean [Right Arm] Blood Pressure Position Blood Pressure Position [Right Arm] Pulse Oximetry 98 98 99 Oxygen Delivery Method 07/06/18 05:15 07/06/18 05:18 07/06/18 05:21 Temperature 37.0 C Temperature Source Sepsis Recent Fever Within 48 Hours Sepsis New/Unexplained Change in Mental Status Sepsis Action Taken by Nursing Pulse Rate 93 H 115 H Pulse Rate [Apical] Pulse Rhythm Pulse Rhythm [Apical] Pulse Strength Pulse Strength [Apical] Respiratory Rate 18 Respiratory Effort / Characteristics Respiratory Depth Respiratory Pattern Blood Pressure 133/76 Blood Pressure [Right Arm] Blood Pressure Mean Blood Pressure Mean [Right Arm] Blood Pressure Position Blood Pressure Position [Right Arm] Pulse Oximetry 98 Oxygen Delivery Method 07/06/18 05:23 07/06/18 05:28 07/06/18 05:33 Temperature Temperature Source Sepsis Recent Fever Within 48 Hours Sepsis New/Unexplained Change in Mental Status Sepsis Action Taken by Nursing Pulse Rate 88 93 H 90 Pulse Rate [Apical] Pulse Rhythm Pulse Rhythm [Apical] Pulse Strength Pulse Strength [Apical] Respiratory Rate Respiratory Effort / Characteristics Respiratory Depth Respiratory Pattern Blood Pressure Blood Pressure [Right Arm] Blood Pressure Mean Blood Pressure Mean [Right Arm] Blood Pressure Position Blood Pressure Position [Right Arm] Pulse Oximetry 99 98 98 Oxygen Delivery Method 07/06/18 05:38 07/06/18 05:43 07/06/18 05:48 Temperature Temperature Source Sepsis Recent Fever Within 48 Hours Sepsis New/Unexplained Change in Mental Status Sepsis Action Taken by Nursing Pulse Rate 102 H 93 H 113 H Pulse Rate [Apical] Pulse Rhythm Pulse Rhythm [Apical] Pulse Strength Pulse Strength [Apical] Respiratory Rate Respiratory Effort / Characteristics Respiratory Depth Respiratory Pattern Blood Pressure Blood Pressure [Right Arm] Blood Pressure Mean Blood Pressure Mean [Right Arm] Blood Pressure Position Blood Pressure Position [Right Arm] Pulse Oximetry 98 96 97 Oxygen Delivery Method 07/06/18 05:51 07/06/18 05:53 07/06/18 05:58 Temperature Temperature Source Sepsis Recent Fever Within 48 Hours Sepsis New/Unexplained Change in Mental Status Sepsis Action Taken by Nursing Pulse Rate 100 H 99 H 104 H Pulse Rate [Apical] Pulse Rhythm Pulse Rhythm [Apical] Pulse Strength Pulse Strength [Apical] Respiratory Rate Respiratory Effort / Characteristics Respiratory Depth Respiratory Pattern Blood Pressure 137/81 Blood Pressure [Right Arm] Blood Pressure Mean Blood Pressure Mean [Right Arm] Blood Pressure Position Blood Pressure Position [Right Arm] Pulse Oximetry 100 100 Oxygen Delivery Method 07/06/18 06:03 07/06/18 06:08 07/06/18 06:13 Temperature Temperature Source Sepsis Recent Fever Within 48 Hours Sepsis New/Unexplained Change in Mental Status Sepsis Action Taken by Nursing Pulse Rate 106 H 103 H 96 H Pulse Rate [Apical] Pulse Rhythm Pulse Rhythm [Apical] Pulse Strength Pulse Strength [Apical] Respiratory Rate Respiratory Effort / Characteristics Respiratory Depth Respiratory Pattern Blood Pressure Blood Pressure [Right Arm] Blood Pressure Mean Blood Pressure Mean [Right Arm] Blood Pressure Position Blood Pressure Position [Right Arm] Pulse Oximetry 100 100 100 Oxygen Delivery Method 07/06/18 06:15 07/06/18 06:18 07/06/18 06:21 Temperature Temperature Source Sepsis Recent Fever Within 48 Hours Sepsis New/Unexplained Change in Mental Status Sepsis Action Taken by Nursing Pulse Rate 103 H 93 H Pulse Rate [Apical] Pulse Rhythm Pulse Rhythm [Apical] Pulse Strength Pulse Strength [Apical] Respiratory Rate 18 Respiratory Effort / Characteristics Respiratory Depth Respiratory Pattern Blood Pressure 140/84 Blood Pressure [Right Arm] Blood Pressure Mean Blood Pressure Mean [Right Arm] Blood Pressure Position Blood Pressure Position [Right Arm] Pulse Oximetry 100 Oxygen Delivery Method 07/06/18 06:23 07/06/18 06:28 07/06/18 06:33 Temperature Temperature Source Sepsis Recent Fever Within 48 Hours Sepsis New/Unexplained Change in Mental Status Sepsis Action Taken by Nursing Pulse Rate 96 H 96 H 101 H Pulse Rate [Apical] Pulse Rhythm Pulse Rhythm [Apical] Pulse Strength Pulse Strength [Apical] Respiratory Rate Respiratory Effort / Characteristics Respiratory Depth Respiratory Pattern Blood Pressure Blood Pressure [Right Arm] Blood Pressure Mean Blood Pressure Mean [Right Arm] Blood Pressure Position Blood Pressure Position [Right Arm] Pulse Oximetry 100 100 100 Oxygen Delivery Method 07/06/18 06:38 07/06/18 06:43 07/06/18 06:48 Temperature Temperature Source Sepsis Recent Fever Within 48 Hours Sepsis New/Unexplained Change in Mental Status Sepsis Action Taken by Nursing Pulse Rate 98 H 95 H 94 H Pulse Rate [Apical] Pulse Rhythm Pulse Rhythm [Apical] Pulse Strength Pulse Strength [Apical] Respiratory Rate Respiratory Effort / Characteristics Respiratory Depth Respiratory Pattern Blood Pressure Blood Pressure [Right Arm] Blood Pressure Mean Blood Pressure Mean [Right Arm] Blood Pressure Position Blood Pressure Position [Right Arm] Pulse Oximetry 100 98 98 Oxygen Delivery Method 07/06/18 06:51 07/06/18 06:53 07/06/18 06:58 Temperature Temperature Source Sepsis Recent Fever Within 48 Hours Sepsis New/Unexplained Change in Mental Status Sepsis Action Taken by Nursing Pulse Rate 93 H 92 H 90 Pulse Rate [Apical] Pulse Rhythm Pulse Rhythm [Apical] Pulse Strength Pulse Strength [Apical] Respiratory Rate Respiratory Effort / Characteristics Respiratory Depth Respiratory Pattern Blood Pressure 136/79 Blood Pressure [Right Arm] Blood Pressure Mean Blood Pressure Mean [Right Arm] Blood Pressure Position Blood Pressure Position [Right Arm] Pulse Oximetry 98 99 Oxygen Delivery Method 07/06/18 07:03 07/06/18 07:08 07/06/18 07:13 Temperature Temperature Source Sepsis Recent Fever Within 48 Hours Sepsis New/Unexplained Change in Mental Status Sepsis Action Taken by Nursing Pulse Rate 95 H 94 H 94 H Pulse Rate [Apical] Pulse Rhythm Pulse Rhythm [Apical] Pulse Strength Pulse Strength [Apical] Respiratory Rate Respiratory Effort / Characteristics Respiratory Depth Respiratory Pattern Blood Pressure Blood Pressure [Right Arm] Blood Pressure Mean Blood Pressure Mean [Right Arm] Blood Pressure Position Blood Pressure Position [Right Arm] Pulse Oximetry 98 97 98 Oxygen Delivery Method 07/06/18 07:15 07/06/18 07:18 07/06/18 07:21 Temperature Temperature Source Sepsis Recent Fever Within 48 Hours Sepsis New/Unexplained Change in Mental Status Sepsis Action Taken by Nursing Pulse Rate 92 H 98 H Pulse Rate [Apical] Pulse Rhythm Pulse Rhythm [Apical] Pulse Strength Pulse Strength [Apical] Respiratory Rate 18 Respiratory Effort / Characteristics Respiratory Depth Respiratory Pattern Blood Pressure 139/78 Blood Pressure [Right Arm] Blood Pressure Mean Blood Pressure Mean [Right Arm] Blood Pressure Position Blood Pressure Position [Right Arm] Pulse Oximetry 98 Oxygen Delivery Method 07/06/18 07:23 07/06/18 07:28 07/06/18 07:30 Temperature 37.1 C Temperature Source Sepsis Recent Fever Within 48 Hours Sepsis New/Unexplained Change in Mental Status Sepsis Action Taken by Nursing Pulse Rate 95 H 101 H Pulse Rate [Apical] Pulse Rhythm Pulse Rhythm [Apical] Pulse Strength Pulse Strength [Apical] Respiratory Rate 18 Respiratory Effort / Characteristics Respiratory Depth Respiratory Pattern Blood Pressure Blood Pressure [Right Arm] Blood Pressure Mean Blood Pressure Mean [Right Arm] Blood Pressure Position Blood Pressure Position [Right Arm] Pulse Oximetry 98 99 Oxygen Delivery Method 07/06/18 07:33 07/06/18 07:38 07/06/18 07:43 Temperature Temperature Source Sepsis Recent Fever Within 48 Hours Sepsis New/Unexplained Change in Mental Status Sepsis Action Taken by Nursing Pulse Rate 98 H 95 H 97 H Pulse Rate [Apical] Pulse Rhythm Pulse Rhythm [Apical] Pulse Strength Pulse Strength [Apical] Respiratory Rate Respiratory Effort / Characteristics Respiratory Depth Respiratory Pattern Blood Pressure Blood Pressure [Right Arm] Blood Pressure Mean Blood Pressure Mean [Right Arm] Blood Pressure Position Blood Pressure Position [Right Arm] Pulse Oximetry 99 97 100 Oxygen Delivery Method 07/06/18 07:48 07/06/18 07:51 07/06/18 07:53 Temperature Temperature Source Sepsis Recent Fever Within 48 Hours Sepsis New/Unexplained Change in Mental Status Sepsis Action Taken by Nursing Pulse Rate 109 H 104 H 102 H Pulse Rate [Apical] Pulse Rhythm Pulse Rhythm [Apical] Pulse Strength Pulse Strength [Apical] Respiratory Rate Respiratory Effort / Characteristics Respiratory Depth Respiratory Pattern Blood Pressure 142/90 H Blood Pressure [Right Arm] Blood Pressure Mean Blood Pressure Mean [Right Arm] Blood Pressure Position Blood Pressure Position [Right Arm] Pulse Oximetry 100 100 Oxygen Delivery Method 07/06/18 07:58 07/06/18 08:03 07/06/18 08:08 Temperature Temperature Source Sepsis Recent Fever Within 48 Hours Sepsis New/Unexplained Change in Mental Status Sepsis Action Taken by Nursing Pulse Rate 105 H 104 H 102 H Pulse Rate [Apical] Pulse Rhythm Pulse Rhythm [Apical] Pulse Strength Pulse Strength [Apical] Respiratory Rate Respiratory Effort / Characteristics Respiratory Depth Respiratory Pattern Blood Pressure Blood Pressure [Right Arm] Blood Pressure Mean Blood Pressure Mean [Right Arm] Blood Pressure Position Blood Pressure Position [Right Arm] Pulse Oximetry 100 100 100 Oxygen Delivery Method 07/06/18 08:13 07/06/18 08:15 07/06/18 08:18 Temperature Temperature Source Sepsis Recent Fever Within 48 Hours Sepsis New/Unexplained Change in Mental Status Sepsis Action Taken by Nursing Pulse Rate 102 H 94 H Pulse Rate [Apical] Pulse Rhythm Pulse Rhythm [Apical] Pulse Strength Pulse Strength [Apical] Respiratory Rate 18 Respiratory Effort / Characteristics Respiratory Depth Respiratory Pattern Blood Pressure Blood Pressure [Right Arm] Blood Pressure Mean Blood Pressure Mean [Right Arm] Blood Pressure Position Blood Pressure Position [Right Arm] Pulse Oximetry 99 100 Oxygen Delivery Method 07/06/18 08:20 07/06/18 08:23 07/06/18 08:28 Temperature Temperature Source Sepsis Recent Fever Within 48 Hours Sepsis New/Unexplained Change in Mental Status Sepsis Action Taken by Nursing Pulse Rate 97 H 104 H 106 H Pulse Rate [Apical] Pulse Rhythm Pulse Rhythm [Apical] Pulse Strength Pulse Strength [Apical] Respiratory Rate Respiratory Effort / Characteristics Respiratory Depth Respiratory Pattern Blood Pressure 141/85 H Blood Pressure [Right Arm] Blood Pressure Mean Blood Pressure Mean [Right Arm] Blood Pressure Position Blood Pressure Position [Right Arm] Pulse Oximetry 100 100 Oxygen Delivery Method 07/06/18 08:33 07/06/18 08:38 07/06/18 08:43 Temperature Temperature Source Sepsis Recent Fever Within 48 Hours Sepsis New/Unexplained Change in Mental Status Sepsis Action Taken by Nursing Pulse Rate 112 H 114 H 99 H Pulse Rate [Apical] Pulse Rhythm Pulse Rhythm [Apical] Pulse Strength Pulse Strength [Apical] Respiratory Rate Respiratory Effort / Characteristics Respiratory Depth Respiratory Pattern Blood Pressure Blood Pressure [Right Arm] Blood Pressure Mean Blood Pressure Mean [Right Arm] Blood Pressure Position Blood Pressure Position [Right Arm] Pulse Oximetry 100 100 100 Oxygen Delivery Method 07/06/18 08:48 07/06/18 08:53 07/06/18 08:58 Temperature Temperature Source Sepsis Recent Fever Within 48 Hours Sepsis New/Unexplained Change in Mental Status Sepsis Action Taken by Nursing Pulse Rate 106 H 90 94 H Pulse Rate [Apical] Pulse Rhythm Pulse Rhythm [Apical] Pulse Strength Pulse Strength [Apical] Respiratory Rate Respiratory Effort / Characteristics Respiratory Depth Respiratory Pattern Blood Pressure Blood Pressure [Right Arm] Blood Pressure Mean Blood Pressure Mean [Right Arm] Blood Pressure Position Blood Pressure Position [Right Arm] Pulse Oximetry 100 100 100 Oxygen Delivery Method 07/06/18 09:03 07/06/18 09:08 07/06/18 09:13 Temperature Temperature Source Sepsis Recent Fever Within 48 Hours Sepsis New/Unexplained Change in Mental Status Sepsis Action Taken by Nursing Pulse Rate 94 H 93 H 91 H Pulse Rate [Apical] Pulse Rhythm Pulse Rhythm [Apical] Pulse Strength Pulse Strength [Apical] Respiratory Rate Respiratory Effort / Characteristics Respiratory Depth Respiratory Pattern Blood Pressure Blood Pressure [Right Arm] Blood Pressure Mean Blood Pressure Mean [Right Arm] Blood Pressure Position Blood Pressure Position [Right Arm] Pulse Oximetry 100 100 100 Oxygen Delivery Method 07/06/18 09:18 07/06/18 09:21 07/06/18 09:23 Temperature Temperature Source Sepsis Recent Fever Within 48 Hours Sepsis New/Unexplained Change in Mental Status Sepsis Action Taken by Nursing Pulse Rate 96 H 100 H 96 H Pulse Rate [Apical] Pulse Rhythm Pulse Rhythm [Apical] Pulse Strength Pulse Strength [Apical] Respiratory Rate Respiratory Effort / Characteristics Respiratory Depth Respiratory Pattern Blood Pressure 137/84 Blood Pressure [Right Arm] Blood Pressure Mean Blood Pressure Mean [Right Arm] Blood Pressure Position Blood Pressure Position [Right Arm] Pulse Oximetry 100 100 Oxygen Delivery Method 07/06/18 09:28 07/06/18 09:33 07/06/18 09:38 Temperature Temperature Source Sepsis Recent Fever Within 48 Hours Sepsis New/Unexplained Change in Mental Status Sepsis Action Taken by Nursing Pulse Rate 97 H 99 H 95 H Pulse Rate [Apical] Pulse Rhythm Pulse Rhythm [Apical] Pulse Strength Pulse Strength [Apical] Respiratory Rate Respiratory Effort / Characteristics Respiratory Depth Respiratory Pattern Blood Pressure Blood Pressure [Right Arm] Blood Pressure Mean Blood Pressure Mean [Right Arm] Blood Pressure Position Blood Pressure Position [Right Arm] Pulse Oximetry 100 100 100 Oxygen Delivery Method 07/06/18 09:43 07/06/18 09:48 07/06/18 09:53 Temperature Temperature Source Sepsis Recent Fever Within 48 Hours Sepsis New/Unexplained Change in Mental Status Sepsis Action Taken by Nursing Pulse Rate 97 H 99 H 100 H Pulse Rate [Apical] Pulse Rhythm Pulse Rhythm [Apical] Pulse Strength Pulse Strength [Apical] Respiratory Rate Respiratory Effort / Characteristics Respiratory Depth Respiratory Pattern Blood Pressure Blood Pressure [Right Arm] Blood Pressure Mean Blood Pressure Mean [Right Arm] Blood Pressure Position Blood Pressure Position [Right Arm] Pulse Oximetry 100 100 100 Oxygen Delivery Method 07/06/18 09:58 07/06/18 10:03 07/06/18 10:08 Temperature Temperature Source Sepsis Recent Fever Within 48 Hours Sepsis New/Unexplained Change in Mental Status Sepsis Action Taken by Nursing Pulse Rate 100 H 101 H 97 H Pulse Rate [Apical] Pulse Rhythm Pulse Rhythm [Apical] Pulse Strength Pulse Strength [Apical] Respiratory Rate Respiratory Effort / Characteristics Respiratory Depth Respiratory Pattern Blood Pressure Blood Pressure [Right Arm] Blood Pressure Mean Blood Pressure Mean [Right Arm] Blood Pressure Position Blood Pressure Position [Right Arm] Pulse Oximetry 100 100 100 Oxygen Delivery Method 07/06/18 10:13 07/06/18 10:15 07/06/18 10:18 Temperature Temperature Source Sepsis Recent Fever Within 48 Hours Sepsis New/Unexplained Change in Mental Status Sepsis Action Taken by Nursing Pulse Rate 97 H 110 H Pulse Rate [Apical] Pulse Rhythm Pulse Rhythm [Apical] Pulse Strength Pulse Strength [Apical] Respiratory Rate 18 Respiratory Effort / Characteristics Respiratory Depth Respiratory Pattern Blood Pressure Blood Pressure [Right Arm] Blood Pressure Mean Blood Pressure Mean [Right Arm] Blood Pressure Position Blood Pressure Position [Right Arm] Pulse Oximetry 100 100 Oxygen Delivery Method 07/06/18 10:21 07/06/18 10:23 07/06/18 10:28 Temperature Temperature Source Sepsis Recent Fever Within 48 Hours Sepsis New/Unexplained Change in Mental Status Sepsis Action Taken by Nursing Pulse Rate 104 H 106 H 101 H Pulse Rate [Apical] Pulse Rhythm Pulse Rhythm [Apical] Pulse Strength Pulse Strength [Apical] Respiratory Rate Respiratory Effort / Characteristics Respiratory Depth Respiratory Pattern Blood Pressure 135/92 Blood Pressure [Right Arm] Blood Pressure Mean Blood Pressure Mean [Right Arm] Blood Pressure Position Blood Pressure Position [Right Arm] Pulse Oximetry 100 100 Oxygen Delivery Method 07/06/18 10:33 07/06/18 10:38 07/06/18 10:43 Temperature Temperature Source Sepsis Recent Fever Within 48 Hours Sepsis New/Unexplained Change in Mental Status Sepsis Action Taken by Nursing Pulse Rate 104 H 105 H 113 H Pulse Rate [Apical] Pulse Rhythm Pulse Rhythm [Apical] Pulse Strength Pulse Strength [Apical] Respiratory Rate Respiratory Effort / Characteristics Respiratory Depth Respiratory Pattern Blood Pressure Blood Pressure [Right Arm] Blood Pressure Mean Blood Pressure Mean [Right Arm] Blood Pressure Position Blood Pressure Position [Right Arm] Pulse Oximetry 100 100 100 Oxygen Delivery Method 07/06/18 10:48 07/06/18 10:53 07/06/18 10:58 Temperature Temperature Source Sepsis Recent Fever Within 48 Hours Sepsis New/Unexplained Change in Mental Status Sepsis Action Taken by Nursing Pulse Rate 110 H 108 H 106 H Pulse Rate [Apical] Pulse Rhythm Pulse Rhythm [Apical] Pulse Strength Pulse Strength [Apical] Respiratory Rate Respiratory Effort / Characteristics Respiratory Depth Respiratory Pattern Blood Pressure Blood Pressure [Right Arm] Blood Pressure Mean Blood Pressure Mean [Right Arm] Blood Pressure Position Blood Pressure Position [Right Arm] Pulse Oximetry 100 100 100 Oxygen Delivery Method 07/06/18 11:03 07/06/18 11:08 07/06/18 11:13 Temperature Temperature Source Sepsis Recent Fever Within 48 Hours Sepsis New/Unexplained Change in Mental Status Sepsis Action Taken by Nursing Pulse Rate 106 H 111 H 110 H Pulse Rate [Apical] Pulse Rhythm Pulse Rhythm [Apical] Pulse Strength Pulse Strength [Apical] Respiratory Rate Respiratory Effort / Characteristics Respiratory Depth Respiratory Pattern Blood Pressure 141/95 H Blood Pressure [Right Arm] Blood Pressure Mean Blood Pressure Mean [Right Arm] Blood Pressure Position Blood Pressure Position [Right Arm] Pulse Oximetry 100 100 100 Oxygen Delivery Method 07/06/18 11:15 07/06/18 11:18 07/06/18 11:21 Temperature Temperature Source Sepsis Recent Fever Within 48 Hours Sepsis New/Unexplained Change in Mental Status Sepsis Action Taken by Nursing Pulse Rate 114 H 112 H Pulse Rate [Apical] Pulse Rhythm Pulse Rhythm [Apical] Pulse Strength Pulse Strength [Apical] Respiratory Rate 18 Respiratory Effort / Characteristics Respiratory Depth Respiratory Pattern Blood Pressure 146/95 H Blood Pressure [Right Arm] Blood Pressure Mean Blood Pressure Mean [Right Arm] Blood Pressure Position Blood Pressure Position [Right Arm] Pulse Oximetry 100 Oxygen Delivery Method 07/06/18 11:23 07/06/18 11:28 07/06/18 11:33 Temperature Temperature Source Sepsis Recent Fever Within 48 Hours Sepsis New/Unexplained Change in Mental Status Sepsis Action Taken by Nursing Pulse Rate 112 H 112 H 108 H Pulse Rate [Apical] Pulse Rhythm Pulse Rhythm [Apical] Pulse Strength Pulse Strength [Apical] Respiratory Rate Respiratory Effort / Characteristics Respiratory Depth Respiratory Pattern Blood Pressure Blood Pressure [Right Arm] Blood Pressure Mean Blood Pressure Mean [Right Arm] Blood Pressure Position Blood Pressure Position [Right Arm] Pulse Oximetry 100 100 100 Oxygen Delivery Method 07/06/18 11:38 07/06/18 11:43 07/06/18 11:48 Temperature Temperature Source Sepsis Recent Fever Within 48 Hours Sepsis New/Unexplained Change in Mental Status Sepsis Action Taken by Nursing Pulse Rate 110 H 112 H 115 H Pulse Rate [Apical] Pulse Rhythm Pulse Rhythm [Apical] Pulse Strength Pulse Strength [Apical] Respiratory Rate Respiratory Effort / Characteristics Respiratory Depth Respiratory Pattern Blood Pressure Blood Pressure [Right Arm] Blood Pressure Mean Blood Pressure Mean [Right Arm] Blood Pressure Position Blood Pressure Position [Right Arm] Pulse Oximetry 100 100 100 Oxygen Delivery Method 07/06/18 11:53 07/06/18 11:58 07/06/18 12:03 Temperature Temperature Source Sepsis Recent Fever Within 48 Hours Sepsis New/Unexplained Change in Mental Status Sepsis Action Taken by Nursing Pulse Rate 101 H 98 H 95 H Pulse Rate [Apical] Pulse Rhythm Pulse Rhythm [Apical] Pulse Strength Pulse Strength [Apical] Respiratory Rate Respiratory Effort / Characteristics Respiratory Depth Respiratory Pattern Blood Pressure Blood Pressure [Right Arm] Blood Pressure Mean Blood Pressure Mean [Right Arm] Blood Pressure Position Blood Pressure Position [Right Arm] Pulse Oximetry 100 98 98 Oxygen Delivery Method 07/06/18 12:08 07/06/18 12:13 07/06/18 12:18 Temperature Temperature Source Sepsis Recent Fever Within 48 Hours Sepsis New/Unexplained Change in Mental Status Sepsis Action Taken by Nursing Pulse Rate 97 H 102 H 95 H Pulse Rate [Apical] Pulse Rhythm Pulse Rhythm [Apical] Pulse Strength Pulse Strength [Apical] Respiratory Rate Respiratory Effort / Characteristics Respiratory Depth Respiratory Pattern Blood Pressure Blood Pressure [Right Arm] Blood Pressure Mean Blood Pressure Mean [Right Arm] Blood Pressure Position Blood Pressure Position [Right Arm] Pulse Oximetry 98 98 98 Oxygen Delivery Method 07/06/18 12:21 07/06/18 12:23 07/06/18 12:28 Temperature Temperature Source Sepsis Recent Fever Within 48 Hours Sepsis New/Unexplained Change in Mental Status Sepsis Action Taken by Nursing Pulse Rate 98 H 96 H 95 H Pulse Rate [Apical] Pulse Rhythm Pulse Rhythm [Apical] Pulse Strength Pulse Strength [Apical] Respiratory Rate Respiratory Effort / Characteristics Respiratory Depth Respiratory Pattern Blood Pressure 130/75 Blood Pressure [Right Arm] Blood Pressure Mean Blood Pressure Mean [Right Arm] Blood Pressure Position Blood Pressure Position [Right Arm] Pulse Oximetry 97 97 Oxygen Delivery Method 07/06/18 12:33 07/06/18 12:38 07/06/18 12:43 Temperature Temperature Source Sepsis Recent Fever Within 48 Hours Sepsis New/Unexplained Change in Mental Status Sepsis Action Taken by Nursing Pulse Rate 99 H 100 H 104 H Pulse Rate [Apical] Pulse Rhythm Pulse Rhythm [Apical] Pulse Strength Pulse Strength [Apical] Respiratory Rate Respiratory Effort / Characteristics Respiratory Depth Respiratory Pattern Blood Pressure Blood Pressure [Right Arm] Blood Pressure Mean Blood Pressure Mean [Right Arm] Blood Pressure Position Blood Pressure Position [Right Arm] Pulse Oximetry 98 97 99 Oxygen Delivery Method 07/06/18 12:48 07/06/18 12:53 07/06/18 12:58 Temperature Temperature Source Sepsis Recent Fever Within 48 Hours Sepsis New/Unexplained Change in Mental Status Sepsis Action Taken by Nursing Pulse Rate 105 H 107 H 104 H Pulse Rate [Apical] Pulse Rhythm Pulse Rhythm [Apical] Pulse Strength Pulse Strength [Apical] Respiratory Rate Respiratory Effort / Characteristics Respiratory Depth Respiratory Pattern Blood Pressure Blood Pressure [Right Arm] Blood Pressure Mean Blood Pressure Mean [Right Arm] Blood Pressure Position Blood Pressure Position [Right Arm] Pulse Oximetry 98 98 98 Oxygen Delivery Method 07/06/18 13:03 07/06/18 13:08 07/06/18 13:13 Temperature Temperature Source Sepsis Recent Fever Within 48 Hours Sepsis New/Unexplained Change in Mental Status Sepsis Action Taken by Nursing Pulse Rate 100 H 105 H 108 H Pulse Rate [Apical] Pulse Rhythm Pulse Rhythm [Apical] Pulse Strength Pulse Strength [Apical] Respiratory Rate Respiratory Effort / Characteristics Respiratory Depth Respiratory Pattern Blood Pressure Blood Pressure [Right Arm] Blood Pressure Mean Blood Pressure Mean [Right Arm] Blood Pressure Position Blood Pressure Position [Right Arm] Pulse Oximetry 98 97 98 Oxygen Delivery Method 07/06/18 13:15 07/06/18 13:18 07/06/18 13:21 Temperature 36.7 C Temperature Source Sepsis Recent Fever Within 48 Hours Sepsis New/Unexplained Change in Mental Status Sepsis Action Taken by Nursing Pulse Rate 105 H 94 H Pulse Rate [Apical] Pulse Rhythm Pulse Rhythm [Apical] Pulse Strength Pulse Strength [Apical] Respiratory Rate 18 Respiratory Effort / Characteristics Non-Labored Spontaneous Respiratory Depth Respiratory Pattern Blood Pressure 136/78 Blood Pressure [Right Arm] Blood Pressure Mean Blood Pressure Mean [Right Arm] Blood Pressure Position Blood Pressure Position [Right Arm] Pulse Oximetry 98 Oxygen Delivery Method 07/06/18 13:23 07/06/18 13:28 07/06/18 13:29 Temperature Temperature Source Sepsis Recent Fever Within 48 Hours Sepsis New/Unexplained Change in Mental Status Sepsis Action Taken by Nursing Pulse Rate 107 H 102 H 99 H Pulse Rate [Apical] Pulse Rhythm Pulse Rhythm [Apical] Pulse Strength Pulse Strength [Apical] Respiratory Rate Respiratory Effort / Characteristics Respiratory Depth Respiratory Pattern Blood Pressure Blood Pressure [Right Arm] Blood Pressure Mean Blood Pressure Mean [Right Arm] Blood Pressure Position Blood Pressure Position [Right Arm] Pulse Oximetry 98 98 93 Oxygen Delivery Method 07/06/18 13:33 07/06/18 13:38 07/06/18 13:43 Temperature Temperature Source Sepsis Recent Fever Within 48 Hours Sepsis New/Unexplained Change in Mental Status Sepsis Action Taken by Nursing Pulse Rate 102 H 102 H 106 H Pulse Rate [Apical] Pulse Rhythm Pulse Rhythm [Apical] Pulse Strength Pulse Strength [Apical] Respiratory Rate Respiratory Effort / Characteristics Respiratory Depth Respiratory Pattern Blood Pressure Blood Pressure [Right Arm] Blood Pressure Mean Blood Pressure Mean [Right Arm] Blood Pressure Position Blood Pressure Position [Right Arm] Pulse Oximetry 98 98 98 Oxygen Delivery Method 07/06/18 13:48 07/06/18 13:53 07/06/18 13:58 Temperature Temperature Source Sepsis Recent Fever Within 48 Hours Sepsis New/Unexplained Change in Mental Status Sepsis Action Taken by Nursing Pulse Rate 99 H 99 H 100 H Pulse Rate [Apical] Pulse Rhythm Pulse Rhythm [Apical] Pulse Strength Pulse Strength [Apical] Respiratory Rate Respiratory Effort / Characteristics Respiratory Depth Respiratory Pattern Blood Pressure Blood Pressure [Right Arm] Blood Pressure Mean Blood Pressure Mean [Right Arm] Blood Pressure Position Blood Pressure Position [Right Arm] Pulse Oximetry 97 97 97 Oxygen Delivery Method 07/06/18 14:03 07/06/18 14:08 07/06/18 14:13 Temperature Temperature Source Sepsis Recent Fever Within 48 Hours Sepsis New/Unexplained Change in Mental Status Sepsis Action Taken by Nursing Pulse Rate 101 H 96 H 101 H Pulse Rate [Apical] Pulse Rhythm Pulse Rhythm [Apical] Pulse Strength Pulse Strength [Apical] Respiratory Rate Respiratory Effort / Characteristics Respiratory Depth Respiratory Pattern Blood Pressure Blood Pressure [Right Arm] Blood Pressure Mean Blood Pressure Mean [Right Arm] Blood Pressure Position Blood Pressure Position [Right Arm] Pulse Oximetry 98 97 98 Oxygen Delivery Method 07/06/18 14:15 07/06/18 14:18 07/06/18 14:21 Temperature Temperature Source Sepsis Recent Fever Within 48 Hours Sepsis New/Unexplained Change in Mental Status Sepsis Action Taken by Nursing Pulse Rate 101 H 102 H Pulse Rate [Apical] Pulse Rhythm Pulse Rhythm [Apical] Pulse Strength Pulse Strength [Apical] Respiratory Rate 18 Respiratory Effort / Characteristics Respiratory Depth Respiratory Pattern Blood Pressure 122/69 Blood Pressure [Right Arm] Blood Pressure Mean Blood Pressure Mean [Right Arm] Blood Pressure Position Blood Pressure Position [Right Arm] Pulse Oximetry 97 Oxygen Delivery Method 07/06/18 14:23 07/06/18 14:28 07/06/18 14:33 Temperature Temperature Source Sepsis Recent Fever Within 48 Hours Sepsis New/Unexplained Change in Mental Status Sepsis Action Taken by Nursing Pulse Rate 101 H 99 H 100 H Pulse Rate [Apical] Pulse Rhythm Pulse Rhythm [Apical] Pulse Strength Pulse Strength [Apical] Respiratory Rate Respiratory Effort / Characteristics Respiratory Depth Respiratory Pattern Blood Pressure Blood Pressure [Right Arm] Blood Pressure Mean Blood Pressure Mean [Right Arm] Blood Pressure Position Blood Pressure Position [Right Arm] Pulse Oximetry 98 98 98 Oxygen Delivery Method 07/06/18 14:38 07/06/18 14:43 07/06/18 14:48 Temperature Temperature Source Sepsis Recent Fever Within 48 Hours Sepsis New/Unexplained Change in Mental Status Sepsis Action Taken by Nursing Pulse Rate 106 H 108 H 107 H Pulse Rate [Apical] Pulse Rhythm Pulse Rhythm [Apical] Pulse Strength Pulse Strength [Apical] Respiratory Rate Respiratory Effort / Characteristics Respiratory Depth Respiratory Pattern Blood Pressure Blood Pressure [Right Arm] Blood Pressure Mean Blood Pressure Mean [Right Arm] Blood Pressure Position Blood Pressure Position [Right Arm] Pulse Oximetry 100 98 100 Oxygen Delivery Method 07/06/18 14:53 07/06/18 14:58 07/06/18 15:03 Temperature Temperature Source Sepsis Recent Fever Within 48 Hours Sepsis New/Unexplained Change in Mental Status Sepsis Action Taken by Nursing Pulse Rate 106 H 106 H 109 H Pulse Rate [Apical] Pulse Rhythm Pulse Rhythm [Apical] Pulse Strength Pulse Strength [Apical] Respiratory Rate Respiratory Effort / Characteristics Respiratory Depth Respiratory Pattern Blood Pressure Blood Pressure [Right Arm] Blood Pressure Mean Blood Pressure Mean [Right Arm] Blood Pressure Position Blood Pressure Position [Right Arm] Pulse Oximetry 100 100 100 Oxygen Delivery Method 07/06/18 15:08 07/06/18 15:13 07/06/18 15:15 Temperature 37.1 C Temperature Source Sepsis Recent Fever Within 48 Hours Sepsis New/Unexplained Change in Mental Status Sepsis Action Taken by Nursing Pulse Rate 105 H 111 H Pulse Rate [Apical] Pulse Rhythm Pulse Rhythm [Apical] Pulse Strength Pulse Strength [Apical] Respiratory Rate 18 Respiratory Effort / Characteristics Respiratory Depth Respiratory Pattern Blood Pressure Blood Pressure [Right Arm] Blood Pressure Mean Blood Pressure Mean [Right Arm] Blood Pressure Position Blood Pressure Position [Right Arm] Pulse Oximetry 100 100 Oxygen Delivery Method 07/06/18 15:18 07/06/18 15:21 07/06/18 15:23 Temperature Temperature Source Sepsis Recent Fever Within 48 Hours Sepsis New/Unexplained Change in Mental Status Sepsis Action Taken by Nursing Pulse Rate 110 H 113 H 113 H Pulse Rate [Apical] Pulse Rhythm Pulse Rhythm [Apical] Pulse Strength Pulse Strength [Apical] Respiratory Rate Respiratory Effort / Characteristics Respiratory Depth Respiratory Pattern Blood Pressure 139/77 Blood Pressure [Right Arm] Blood Pressure Mean Blood Pressure Mean [Right Arm] Blood Pressure Position Blood Pressure Position [Right Arm] Pulse Oximetry 100 98 Oxygen Delivery Method 07/06/18 15:28 07/06/18 15:33 07/06/18 15:38 Temperature Temperature Source Sepsis Recent Fever Within 48 Hours Sepsis New/Unexplained Change in Mental Status Sepsis Action Taken by Nursing Pulse Rate 113 H 115 H 109 H Pulse Rate [Apical] Pulse Rhythm Pulse Rhythm [Apical] Pulse Strength Pulse Strength [Apical] Respiratory Rate Respiratory Effort / Characteristics Respiratory Depth Respiratory Pattern Blood Pressure Blood Pressure [Right Arm] Blood Pressure Mean Blood Pressure Mean [Right Arm] Blood Pressure Position Blood Pressure Position [Right Arm] Pulse Oximetry 100 99 100 Oxygen Delivery Method 07/06/18 15:43 07/06/18 15:48 07/06/18 15:53 Temperature Temperature Source Sepsis Recent Fever Within 48 Hours Sepsis New/Unexplained Change in Mental Status Sepsis Action Taken by Nursing Pulse Rate 103 H 114 H 117 H Pulse Rate [Apical] Pulse Rhythm Pulse Rhythm [Apical] Pulse Strength Pulse Strength [Apical] Respiratory Rate Respiratory Effort / Characteristics Respiratory Depth Respiratory Pattern Blood Pressure Blood Pressure [Right Arm] Blood Pressure Mean Blood Pressure Mean [Right Arm] Blood Pressure Position Blood Pressure Position [Right Arm] Pulse Oximetry 100 98 100 Oxygen Delivery Method 07/06/18 15:58 07/06/18 16:03 07/06/18 16:08 Temperature Temperature Source Sepsis Recent Fever Within 48 Hours Sepsis New/Unexplained Change in Mental Status Sepsis Action Taken by Nursing Pulse Rate 114 H 110 H 109 H Pulse Rate [Apical] Pulse Rhythm Pulse Rhythm [Apical] Pulse Strength Pulse Strength [Apical] Respiratory Rate Respiratory Effort / Characteristics Respiratory Depth Respiratory Pattern Blood Pressure Blood Pressure [Right Arm] Blood Pressure Mean Blood Pressure Mean [Right Arm] Blood Pressure Position Blood Pressure Position [Right Arm] Pulse Oximetry 100 99 100 Oxygen Delivery Method 07/06/18 16:13 07/06/18 16:15 07/06/18 16:18 Temperature Temperature Source Sepsis Recent Fever Within 48 Hours Sepsis New/Unexplained Change in Mental Status Sepsis Action Taken by Nursing Pulse Rate 113 H 115 H Pulse Rate [Apical] Pulse Rhythm Pulse Rhythm [Apical] Pulse Strength Pulse Strength [Apical] Respiratory Rate 18 Respiratory Effort / Characteristics Respiratory Depth Respiratory Pattern Blood Pressure Blood Pressure [Right Arm] Blood Pressure Mean Blood Pressure Mean [Right Arm] Blood Pressure Position Blood Pressure Position [Right Arm] Pulse Oximetry 99 99 Oxygen Delivery Method 07/06/18 16:23 07/06/18 16:28 07/06/18 16:33 Temperature Temperature Source Sepsis Recent Fever Within 48 Hours Sepsis New/Unexplained Change in Mental Status Sepsis Action Taken by Nursing Pulse Rate 108 H 114 H 110 H Pulse Rate [Apical] Pulse Rhythm Pulse Rhythm [Apical] Pulse Strength Pulse Strength [Apical] Respiratory Rate Respiratory Effort / Characteristics Respiratory Depth Respiratory Pattern Blood Pressure 140/89 Blood Pressure [Right Arm] Blood Pressure Mean Blood Pressure Mean [Right Arm] Blood Pressure Position Blood Pressure Position [Right Arm] Pulse Oximetry 100 99 100 Oxygen Delivery Method 07/06/18 16:38 07/06/18 16:40 07/06/18 16:43 Temperature Temperature Source Sepsis Recent Fever Within 48 Hours Sepsis New/Unexplained Change in Mental Status Sepsis Action Taken by Nursing Pulse Rate 111 H 111 H 107 H Pulse Rate [Apical] Pulse Rhythm Pulse Rhythm [Apical] Pulse Strength Pulse Strength [Apical] Respiratory Rate Respiratory Effort / Characteristics Respiratory Depth Respiratory Pattern Blood Pressure 145/92 H Blood Pressure [Right Arm] Blood Pressure Mean Blood Pressure Mean [Right Arm] Blood Pressure Position Blood Pressure Position [Right Arm] Pulse Oximetry 100 100 Oxygen Delivery Method 07/06/18 16:48 07/06/18 16:50 07/06/18 16:53 Temperature Temperature Source Sepsis Recent Fever Within 48 Hours Sepsis New/Unexplained Change in Mental Status Sepsis Action Taken by Nursing Pulse Rate 105 H 106 H 110 H Pulse Rate [Apical] Pulse Rhythm Pulse Rhythm [Apical] Pulse Strength Pulse Strength [Apical] Respiratory Rate Respiratory Effort / Characteristics Respiratory Depth Respiratory Pattern Blood Pressure 142/89 H Blood Pressure [Right Arm] Blood Pressure Mean Blood Pressure Mean [Right Arm] Blood Pressure Position Blood Pressure Position [Right Arm] Pulse Oximetry 100 100 Oxygen Delivery Method 07/06/18 16:58 07/06/18 17:03 07/06/18 17:08 Temperature Temperature Source Sepsis Recent Fever Within 48 Hours Sepsis New/Unexplained Change in Mental Status Sepsis Action Taken by Nursing Pulse Rate 111 H 108 H 110 H Pulse Rate [Apical] Pulse Rhythm Pulse Rhythm [Apical] Pulse Strength Pulse Strength [Apical] Respiratory Rate Respiratory Effort / Characteristics Respiratory Depth Respiratory Pattern Blood Pressure Blood Pressure [Right Arm] Blood Pressure Mean Blood Pressure Mean [Right Arm] Blood Pressure Position Blood Pressure Position [Right Arm] Pulse Oximetry 100 100 100 Oxygen Delivery Method 07/06/18 17:13 07/06/18 17:18 07/06/18 17:21 Temperature Temperature Source Sepsis Recent Fever Within 48 Hours Sepsis New/Unexplained Change in Mental Status Sepsis Action Taken by Nursing Pulse Rate 106 H 113 H 108 H Pulse Rate [Apical] Pulse Rhythm Pulse Rhythm [Apical] Pulse Strength Pulse Strength [Apical] Respiratory Rate Respiratory Effort / Characteristics Respiratory Depth Respiratory Pattern Blood Pressure 141/86 H Blood Pressure [Right Arm] Blood Pressure Mean Blood Pressure Mean [Right Arm] Blood Pressure Position Blood Pressure Position [Right Arm] Pulse Oximetry 100 99 Oxygen Delivery Method 07/06/18 17:23 07/06/18 17:28 07/06/18 17:33 Temperature Temperature Source Sepsis Recent Fever Within 48 Hours Sepsis New/Unexplained Change in Mental Status Sepsis Action Taken by Nursing Pulse Rate 109 H 109 H 111 H Pulse Rate [Apical] Pulse Rhythm Pulse Rhythm [Apical] Pulse Strength Pulse Strength [Apical] Respiratory Rate Respiratory Effort / Characteristics Respiratory Depth Respiratory Pattern Blood Pressure Blood Pressure [Right Arm] Blood Pressure Mean Blood Pressure Mean [Right Arm] Blood Pressure Position Blood Pressure Position [Right Arm] Pulse Oximetry 100 100 100 Oxygen Delivery Method 07/06/18 17:38 07/06/18 17:43 07/06/18 17:48 Temperature Temperature Source Sepsis Recent Fever Within 48 Hours Sepsis New/Unexplained Change in Mental Status Sepsis Action Taken by Nursing Pulse Rate 114 H 117 H 115 H Pulse Rate [Apical] Pulse Rhythm Pulse Rhythm [Apical] Pulse Strength Pulse Strength [Apical] Respiratory Rate Respiratory Effort / Characteristics Respiratory Depth Respiratory Pattern Blood Pressure Blood Pressure [Right Arm] Blood Pressure Mean Blood Pressure Mean [Right Arm] Blood Pressure Position Blood Pressure Position [Right Arm] Pulse Oximetry 100 100 100 Oxygen Delivery Method 07/06/18 17:53 07/06/18 17:58 07/06/18 18:03 Temperature Temperature Source Sepsis Recent Fever Within 48 Hours Sepsis New/Unexplained Change in Mental Status Sepsis Action Taken by Nursing Pulse Rate 116 H 115 H 126 H Pulse Rate [Apical] Pulse Rhythm Pulse Rhythm [Apical] Pulse Strength Pulse Strength [Apical] Respiratory Rate Respiratory Effort / Characteristics Respiratory Depth Respiratory Pattern Blood Pressure Blood Pressure [Right Arm] Blood Pressure Mean Blood Pressure Mean [Right Arm] Blood Pressure Position Blood Pressure Position [Right Arm] Pulse Oximetry 100 100 100 Oxygen Delivery Method 07/06/18 18:08 07/06/18 18:13 07/06/18 18:15 Temperature Temperature Source Sepsis Recent Fever Within 48 Hours Sepsis New/Unexplained Change in Mental Status Sepsis Action Taken by Nursing Pulse Rate 114 H 116 H Pulse Rate [Apical] Pulse Rhythm Pulse Rhythm [Apical] Pulse Strength Pulse Strength [Apical] Respiratory Rate 18 Respiratory Effort / Characteristics Respiratory Depth Respiratory Pattern Blood Pressure Blood Pressure [Right Arm] Blood Pressure Mean Blood Pressure Mean [Right Arm] Blood Pressure Position Blood Pressure Position [Right Arm] Pulse Oximetry 100 100 Oxygen Delivery Method 07/06/18 18:18 07/06/18 18:21 07/06/18 18:23 Temperature Temperature Source Sepsis Recent Fever Within 48 Hours Sepsis New/Unexplained Change in Mental Status Sepsis Action Taken by Nursing Pulse Rate 118 H 113 H 114 H Pulse Rate [Apical] Pulse Rhythm Pulse Rhythm [Apical] Pulse Strength Pulse Strength [Apical] Respiratory Rate Respiratory Effort / Characteristics Respiratory Depth Respiratory Pattern Blood Pressure 137/90 Blood Pressure [Right Arm] Blood Pressure Mean Blood Pressure Mean [Right Arm] Blood Pressure Position Blood Pressure Position [Right Arm] Pulse Oximetry 100 100 Oxygen Delivery Method 07/06/18 18:28 07/06/18 18:33 07/06/18 18:38 Temperature Temperature Source Sepsis Recent Fever Within 48 Hours Sepsis New/Unexplained Change in Mental Status Sepsis Action Taken by Nursing Pulse Rate 118 H 114 H 113 H Pulse Rate [Apical] Pulse Rhythm Pulse Rhythm [Apical] Pulse Strength Pulse Strength [Apical] Respiratory Rate Respiratory Effort / Characteristics Respiratory Depth Respiratory Pattern Blood Pressure Blood Pressure [Right Arm] Blood Pressure Mean Blood Pressure Mean [Right Arm] Blood Pressure Position Blood Pressure Position [Right Arm] Pulse Oximetry 100 100 100 Oxygen Delivery Method 07/06/18 18:43 07/06/18 18:48 07/06/18 18:53 Temperature Temperature Source Sepsis Recent Fever Within 48 Hours Sepsis New/Unexplained Change in Mental Status Sepsis Action Taken by Nursing Pulse Rate 110 H 111 H 121 H Pulse Rate [Apical] Pulse Rhythm Pulse Rhythm [Apical] Pulse Strength Pulse Strength [Apical] Respiratory Rate Respiratory Effort / Characteristics Respiratory Depth Respiratory Pattern Blood Pressure Blood Pressure [Right Arm] Blood Pressure Mean Blood Pressure Mean [Right Arm] Blood Pressure Position Blood Pressure Position [Right Arm] Pulse Oximetry 100 100 100 Oxygen Delivery Method 07/06/18 18:58 07/06/18 19:03 07/06/18 19:08 Temperature Temperature Source Sepsis Recent Fever Within 48 Hours Sepsis New/Unexplained Change in Mental Status Sepsis Action Taken by Nursing Pulse Rate 112 H 115 H 115 H Pulse Rate [Apical] Pulse Rhythm Pulse Rhythm [Apical] Pulse Strength Pulse Strength [Apical] Respiratory Rate Respiratory Effort / Characteristics Respiratory Depth Respiratory Pattern Blood Pressure Blood Pressure [Right Arm] Blood Pressure Mean Blood Pressure Mean [Right Arm] Blood Pressure Position Blood Pressure Position [Right Arm] Pulse Oximetry 100 100 100 Oxygen Delivery Method 07/06/18 19:13 07/06/18 19:15 07/06/18 19:18 Temperature 36.9 C Temperature Source Sepsis Recent Fever Within 48 Hours Sepsis New/Unexplained Change in Mental Status Sepsis Action Taken by Nursing Pulse Rate 125 H 118 H Pulse Rate [Apical] Pulse Rhythm Pulse Rhythm [Apical] Pulse Strength Pulse Strength [Apical] Respiratory Rate 18 Respiratory Effort / Characteristics Non-Labored Spontaneous Respiratory Depth Respiratory Pattern Blood Pressure Blood Pressure [Right Arm] Blood Pressure Mean Blood Pressure Mean [Right Arm] Blood Pressure Position Blood Pressure Position [Right Arm] Pulse Oximetry 100 100 Oxygen Delivery Method 07/06/18 19:21 07/06/18 19:23 07/06/18 19:28 Temperature Temperature Source Sepsis Recent Fever Within 48 Hours Sepsis New/Unexplained Change in Mental Status Sepsis Action Taken by Nursing Pulse Rate 122 H 121 H 117 H Pulse Rate [Apical] Pulse Rhythm Pulse Rhythm [Apical] Pulse Strength Pulse Strength [Apical] Respiratory Rate Respiratory Effort / Characteristics Respiratory Depth Respiratory Pattern Blood Pressure 136/83 Blood Pressure [Right Arm] Blood Pressure Mean Blood Pressure Mean [Right Arm] Blood Pressure Position Blood Pressure Position [Right Arm] Pulse Oximetry 100 100 Oxygen Delivery Method 07/06/18 19:33 07/06/18 19:38 Temperature Temperature Source Sepsis Recent Fever Within 48 Hours Sepsis New/Unexplained Change in Mental Status Sepsis Action Taken by Nursing Pulse Rate 121 H 121 H Pulse Rate [Apical] Pulse Rhythm Pulse Rhythm [Apical] Pulse Strength Pulse Strength [Apical] Respiratory Rate Respiratory Effort / Characteristics Respiratory Depth Respiratory Pattern Blood Pressure Blood Pressure [Right Arm] Blood Pressure Mean Blood Pressure Mean [Right Arm] Blood Pressure Position Blood Pressure Position [Right Arm] Pulse Oximetry 100 100 Oxygen Delivery Method GENERAL: Patient is awake, alert, and in no acute distress. Patient is uncomfortable and anxious appearing. EYES: The conjunctivae are clear. The pupils are round and reactive. EARS, NOSE, MOUTH AND THROAT: The nose is without any evidence of any deformity. Mucous membranes are moist.Tongue is midline NECK: The neck is nontender and supple. RESPIRATORY: Normal respiratory effort is noted. There is no evidence of wheezing rhonchi or rales to auscultation. CARDIOVASCULAR: Regular rate and rhythm noted. There no murmurs rubs or gallops normal S1 normal S2 GASTROINTESTINAL: The abdomen is soft. Bowel sounds are present in all quadrants. Abdomen is nontender. MUSCULOSKELETAL/EXTREMITIES: There is no evidence of gross deformity. Full range of motion is noted in the hips and shoulders. SKIN: There is no obvious evidence of any rash. There are no petechiae, pallor or cyanosis noted. NEUROLOGIC: Patient is awake alert and oriented x3. Course 2210: Past medical records reviewed. The patient was evaluated in room C8, and a complete history and physical examination were performed. 2355: I reviewed the patient's case with Dr. Hargrove - [employer] hospitalist. She will evaluate the patient for further management. Administered Medications Lactated Ringer's (Lr) 1,000 mls @ 125 mls/hr IV .Q8H RANJANA Stop: 08/05/18 01:29 Last Infusion: 07/06/18 19:15 Dose: 75 mls/hr Infusion: 07/06/18 18:25 Dose: 75 mls/hr Admin: 07/06/18 16:25 Dose: 75 mls/hr Infusion: 07/06/18 16:11 Dose: 75 mls/hr Infusion: 07/06/18 07:02 Dose: 75 mls/hr Infusion: 07/06/18 06:15 Dose: 75 mls/hr Infusion: 07/06/18 05:15 Dose: 75 mls/hr Infusion: 07/06/18 04:23 Dose: 75 mls/hr Infusion: 07/06/18 03:22 Dose: 75 mls/hr Admin: 07/06/18 02:51 Dose: 75 mls/hr Magnesium Sulfate (Magnesium Sulfate / Wtr) 40 gm in 1,000 mls @ 50 mls/hr IV .Q20H ONE Stop: 07/06/18 22:44 Last Infusion: 07/06/18 19:15 Dose: 50 mls/hr Infusion: 07/06/18 18:26 Dose: 50 mls/hr Infusion: 07/06/18 07:02 Dose: 50 mls/hr Infusion: 07/06/18 06:18 Dose: 50 mls/hr Infusion: 07/06/18 05:15 Dose: 50 mls/hr Admin: 07/06/18 04:22 Dose: 50 mls/hr Labetalol HCl (Normodyne) 100 mg PO BID RANJANA Stop: 08/05/18 10:44 Last Admin: 07/06/18 10:49 Dose: 100 mg Levothyroxine Sodium (Synthroid) 50 mcg PO DAILYBB RANJANA Stop: 08/05/18 06:29 Last Admin: 07/06/18 06:16 Dose: 50 mcg Discontinued Medications Acetaminophen (Tylenol) 650 mg PO ONCE ONE Stop: 07/06/18 08:10 Last Admin: 07/06/18 11:14 Dose: 650 mg Acetaminophen (Tylenol) Confirm Administered Dose 650 mg .ROUTE .STK-MED ONE Stop: 07/06/18 11:13 Last Admin: 07/06/18 15:12 Dose: 650 mg Acetaminophen (Tylenol) Confirm Administered Dose 650 mg .ROUTE .STK-MED ONE Stop: 07/06/18 15:10 Last Admin: 07/06/18 17:37 Dose: Not Given Magnesium Sulfate/Dextrose (Magnesium Sulfate / D5w) 1 gm in 100 mls @ 100 mls/ hr IV ONE ONE Stop: 07/05/18 23:14 Last Infusion: 07/06/18 00:26 Dose: Admin: 07/05/18 22:34 Dose: 100 mls/hr Ceftriaxone Sodium (Rocephin) 1,000 mg in 50 mls @ 100 mls/hr IV NOW STA Stop: 07/06/18 00:25 Last Admin: 07/06/18 00:19 Dose: 100 mls/hr Magnesium Sulfate/Dextrose (Magnesium Sulfate / D5w) 1 gm in 100 mls @ 100 mls/ hr IV ONE ONE Stop: 07/06/18 00:55 Last Admin: 07/06/18 00:46 Dose: 100 mls/hr Labetalol HCl (Normodyne) 10 mg IV NOW STA Stop: 07/05/18 22:16 Last Admin: 07/05/18 22:34 Dose: 10 mg Labetalol HCl (Normodyne) 10 mg IV NOW STA Stop: 07/05/18 23:55 Last Admin: 07/06/18 00:21 Dose: 10 mg Labetalol HCl (Normodyne) 10 mg IV NOW STA Stop: 07/05/18 23:59 Last Admin: 07/06/18 00:19 Dose: 10 mg Magnesium Sulfate (Magnesium Sulfate / Wtr) Confirm Administered Dose 4 gm IV .STK-MED ONE Stop: 07/06/18 01:44 Last Admin: 07/06/18 02:00 Dose: 2 gm Magnesium Sulfate (Magnesium Sulfate / Wtr) 40 gm IV ONE ONE Stop: 07/06/18 02:41 Last Admin: 07/06/18 02:52 Dose: 2 gm Medical Decision Making Differential Diagnosis Differential diagnosis: Etiologies such as benign positional vertigo, labrynthitis, dehydration, hypovolemia, anemia, tumor, infection, hypoglycemia, electrolyte abnormalities, cardiac sources, toxicological sources, central neurologic process, as well as others were entertained. Medical Records Attestation: I reviewed the patient's medical records. Home Medications Current Medication List: was personally reviewed by me Laboratory Data Attestation: I reviewed the patient's lab results. Result diagrams: 07/05/18 22:22 07/05/18 22:22 Lab Results 07/05/18 07/05/18 07/05/18 Range/Units 21:45 22:22 22:22 WBC 10.94 H (4.8-10.8) K/uL RBC 4.03 L (4.2-5.4) M/uL Hgb 13.7 (12.0-16.0) g/dL Hct 38.9 (37-47) % MCV 96.5 (80-100) fL MCH 34.0 (25-34) pg MCHC 35.2 (32-36) g/dL RDW Std Deviation 44.1 (36.4-46.3) fL RDW Coeff of Gilda 12.6 (11.5-14.5) % Plt Count 224 (130-400) K/uL MPV 9.6 (7.4-10.4) fL Immature Gran % (Auto) 0.9 % Neut % (Auto) 72.8 % Lymph % (Auto) 16.4 % [place] % (Auto) 4.8 % Eos % (Auto) 4.7 % Baso % (Auto) 0.4 % Immature Gran # (Auto) 0.10 H (0.00-0.02) K/uL Neut # (Auto) 7.97 H (1.4-6.5) K/uL Lymph # (Auto) 1.79 (1.2-3.4) K/uL [place] # (Auto) 0.53 (0.11-0.59) K/uL Eos # (Auto) 0.51 H (0-0.5) K/uL Baso # (Auto) 0.04 (0-0.2) K/uL PT 9.3 (9.0-12.0) Seconds INR 0.9 (0.9-1.1) APTT 23.2 (21.0-31.0) Seconds PTT Ratio 0.9 Fibrinogen 683 H (184-400) mg/dl Fibrin Degrad Products (<10) mcg/ml Sodium (136-145) mmol/L Potassium (3.5-5.1) mmol/L Chloride (98-107) mmol/L Carbon Dioxide (21-32) mmol/L Anion Gap (3-11) BUN (7-18) mg/dl Creatinine (0.6-1.2) mg/dl Est Cr Clr Drug Dosing ml/min Est GFR ( Amer) Est GFR (Non-Af Amer) BUN/Creatinine Ratio (10-20) Glucose (70-99) mg/dl Calcium (8.5-10.1) mg/dl Magnesium (1.8-2.4) mg/dl Total Bilirubin (0.2-1) mg/dl Direct Bilirubin (0-0.2) mg/dl AST (15-37) U/L ALT (12-78) U/L Alkaline Phosphatase (45-117) U/L C-Reactive Protein (0-0.29) mg/dl Total Protein (6.4-8.2) gm/dl Albumin (3.4-5.0) gm/dl Lipase (73-393) U/L HCG, Quant mIU/ml Urine Color Yellow Urine Appearance Clear (Clear) Urine pH 7.5 (4.5-7.5) Ur Specific [place] 1.008 (1.000-1.030) Urine Protein Negative (Negative) Urine Glucose (UA) Negative (Negative) Urine Ketones Negative (Negative) Urine Blood 3+ H (Negative) Urine Nitrite Negative (Negative) Urine Bilirubin Negative (Negative) Urine Urobilinogen Negative (Negative) Ur Leukocyte Esterase 2+ H (Negative) Urine WBC (Auto) >30 H (0-5) /hpf Urine RBC (Auto) 5-10 H (0-4) /hpf U Hyaline Cast (Auto) 1-5 (0-5) /lpf U Epithel Cells (Auto) 5-10 H (0-5) /lpf Urine Bacteria (Auto) Negative (Negative) 07/05/18 07/05/18 07/05/18 Range/Units 22:22 22:22 22:22 WBC (4.8-10.8) K/uL RBC (4.2-5.4) M/uL Hgb (12.0-16.0) g/dL Hct (37-47) % MCV (80-100) fL MCH (25-34) pg MCHC (32-36) g/dL RDW Std Deviation (36.4-46.3) fL RDW Coeff of Gilda (11.5-14.5) % Plt Count (130-400) K/uL MPV (7.4-10.4) fL Immature Gran % (Auto) % Neut % (Auto) % Lymph % (Auto) % [place] % (Auto) % Eos % (Auto) % Baso % (Auto) % Immature Gran # (Auto) (0.00-0.02) K/uL Neut # (Auto) (1.4-6.5) K/uL Lymph # (Auto) (1.2-3.4) K/uL [place] # (Auto) (0.11-0.59) K/uL Eos # (Auto) (0-0.5) K/uL Baso # (Auto) (0-0.2) K/uL PT (9.0-12.0) Seconds INR (0.9-1.1) APTT (21.0-31.0) Seconds PTT Ratio Fibrinogen (184-400) mg/dl Fibrin Degrad Products <10 (<10) mcg/ml Sodium 139 (136-145) mmol/L Potassium 3.8 (3.5-5.1) mmol/L Chloride 106 (98-107) mmol/L Carbon Dioxide 25 (21-32) mmol/L Anion Gap 8.0 (3-11) BUN 12 (7-18) mg/dl Creatinine 0.68 (0.6-1.2) mg/dl Est Cr Clr Drug Dosing 133.8 ml/min Est GFR ( Amer) 147.0 Est GFR (Non-Af Amer) 126.8 BUN/Creatinine Ratio 18.0 (10-20) Glucose 83 (70-99) mg/dl Calcium 9.3 (8.5-10.1) mg/dl Magnesium 2.0 (1.8-2.4) mg/dl Total Bilirubin 0.3 (0.2-1) mg/dl Direct Bilirubin < 0.1 (0-0.2) mg/dl AST 31 (15-37) U/L ALT 49 (12-78) U/L Alkaline Phosphatase 161 H (45-117) U/L C-Reactive Protein 9.33 H (0-0.29) mg/dl Total Protein 7.4 (6.4-8.2) gm/dl Albumin 2.7 L (3.4-5.0) gm/dl Lipase 101 (73-393) U/L HCG, Quant 106 mIU/ml Urine Color Urine Appearance (Clear) Urine pH (4.5-7.5) Ur Specific [place] (1.000-1.030) Urine Protein (Negative) Urine Glucose (UA) (Negative) Urine Ketones (Negative) Urine Blood (Negative) Urine Nitrite (Negative) Urine Bilirubin (Negative) Urine Urobilinogen (Negative) Ur Leukocyte Esterase (Negative) Urine WBC (Auto) (0-5) /hpf Urine RBC (Auto) (0-4) /hpf U Hyaline Cast (Auto) (0-5) /lpf U Epithel Cells (Auto) (0-5) /lpf Urine Bacteria (Auto) (Negative) Imaging Data Radiologist's Impression: Radiology results as stated below per my review and the radiologist's interpretation: SINGLE VIEW CHEST CLINICAL HISTORY: Dizziness. FINDINGS: An AP, portable, upright chest radiograph is obtained. No prior studies are available for comparison at the time of dictation. The examination is degraded by portable technique and patient rotation. The cardiomediastinal silhouette is unremarkable. The lungs and pleural spaces are clear. No pneumothorax is seen. The bony thorax is grossly intact. IMPRESSION: No active disease in the chest. Electronically signed by: David Griffin M.D. 07/05/2018 11:[address] SCAN OF THE BRAIN WITHOUT IV CONTRAST CLINICAL HISTORY: Headache. COMPARISON STUDY: No priors. TECHNIQUE: Unenhanced axial CT scan of the brain is performed from the vertex to the skull base. A dose lowering technique was utilized adhering to the principles of ALARA. CT DOSE: 537.48 mGy.cm FINDINGS: Brain parenchyma: There is indication between the posterior horn of the right lateral ventricle and the extra-axial space. 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 There is no hemorrhage, mass effect, or evidence of acute territorial ischemia by CT criteria. Lopez-white matter differentiation is preserved. No extra-axial fluid collection is seen. Ventricles, sulci, cisterns: Normal in configuration. Intracranial vasculature: The visualized intracranial vasculature at the skull base is normal in appearance. Calvarium: Unremarkable. Sinuses and mastoids: The visualized paranasal sinuses are clear. The mastoid air cells are well pneumatized. Orbits: The bony orbits are grossly intact. IMPRESSION: 1. No acute intracranial abnormality. 2. 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 Correlation with the patient's medical history and any prior outside imaging studies is recommended. Electronically signed by: David Griffin M.D. 07/05/2018 11:06 PM Blood Pressure Blood Pressure Findings: Elevated blood pressure Blood Pressure Disposition: further management by hospitalist NURYS Escobedo The patient is a 17-year-old female who is post and presented to the emergency department for headache. The patient had preeclampsia while she was . She presents emergency department today with very elevated blood pressure as well as headache. I discussed the patient's laboratory and radiographic studies with her. She was treated with IV antihypertensives as well as IV magnesium and IV antibiotics for presumed urinary tract infection. 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 At this time they recommended inpatient management for further blood pressure control. The patient was reevaluated multiple times. She was feeling much better on subsequent reevaluation. Impression & Plan Pre-eclampsia, UTI (urinary tract infection), Headache Critical Care Time I have personally spent greater than 60 minutes of critical care time in the direct management of this patient. This includes bedside care, interpretation of diagnostic studies, and testing, discussion with consultants, patient, and family members, and other required patient management activities. This 60 minutes is in excess of all separately billable procedures. Critical Care Time: Yes Total Critical Care Time: 60 Discharge Plan Visit Data *Final* Discharge Date/Time: 07/06/18 01:02 Chief Complaint: Dizziness Stated Complaint: PREECLAMPSIA, BP 197/129, DIZZY, EYES/LIPS/LEGS SW ED Provider: Edward Caldwell Discharge Problem: Pre-eclampsia, UTI (urinary tract infection), Headache Patient Disposition: Admitted As Inpatient Discharge Instructions Interventions: ED Discharge Assessment Last Done: 07/06/18 01:02 The scribe's documentation has been prepared under my direction and personally reviewed by me in its entirety. I confirm that the note above accurately reflects all work, treatment, procedures, and medical decision making performed by me.
[2018-07-06] MEDS ORDERED: MAGNESIUM SULFATE 40GM / WTR 1,000 ML BAG IV ONE ×2 (02:40→02:47)
[2018-07-06] MEDS ORDERED: MAGNESIUM SULFATE / WTR 40 GM/1,000 ML BAG IV ONE (02:45)
[2018-07-06] MEDS: LACTATED RINGER'S 1,000 ML IV SCH ×2 (02:51→16:25)
[2018-07-06] MEDS ORDERED: LEVOTHYROXINE SODIUM 50 MCG TABLET PO SCH (06:30)
--- NOTE | 2018-07-06 08:04 | Obstetrical Progress Note ---
Date of Service July 06, 2018 Assessment & Plan (1) Pre-eclampsia: Pressures have been much better victorina over the last few hours. Good uop. Plan is to continue the Mag for 24 hours. Labs were normal on admission and so do not feel a need to repeat unless her situation changes. Exam supports improvement in situation. continue to monitor closely. Subjective Patient continues to note a mild akhtar. However, not worsened. no ruq pain, no n/ v, no cp/sob. Baby now in the room with her. Physical Exam 2 Vital Signs (Past 24 Hours): Last Vital Signs Temp 37.0 C 07/06/18 05:15 Pulse 105 H 07/06/18 07:58 Resp 18 07/06/18 06:15 BP 142/90 H 07/06/18 07:51 Pulse Ox 100 07/06/18 07:58 Constitutional: WD/WN, vitals as above Respiratory: normal respiratory effort, lungs clear to auscultation Cardiovascular: Rate/Rhythm: regular rate, regular rhythm and + tachycardic Extremities: + edema (trace edema) Gastrointestinal (Abdomen): soft, nt no ruq pain Neurologic: dtrs +2/2, no clonus. _ (1) Pre-eclampsia Trimester: unspecified trimester Qualified Code(s): O14.90 - Unspecified pre- eclampsia, unspecified trimester
[2018-07-06] MEDS ORDERED: ACETAMINOPHEN 325 MG TAB PO ONE ×2 (08:09→23:12)
[2018-07-06] MEDS: LABETALOL HCL 100 MG TAB PO SCH ×2 (10:49→20:59)
[2018-07-06] MEDS ORDERED: ACETAMINOPHEN 325 MG TAB ONE ×3 (11:12→23:14)
--- NOTE | 2018-07-07 07:42 | Obstetrical Progress Note ---
Date of Service July 07, 2018 Assessment & Plan (1) Pre-eclampsia: -Patient is normotensive this morning. -She states that she feels much better -We will discharge the patient home on labetalol 100 mg p.o. twice daily Follow-up in the office in 1 week's time for check Subjective 17-year-old 1 para 1 1 week who was readmitted to the hospital with elevated blood pressure. Patient was started on magnesium and received a 4 g bolus and then 2 g/h for 24 hours. She got several IV doses of labetalol and her p.o. labetalol was restarted. This morning patient states that she feels much better. She states that her headache has resolved. She has no specific complaints. Physical Exam Vital Signs (Past 24 Hours): Last Vital Signs Temp 36.7 C 07/07/18 00:30 Pulse 90 07/07/18 00:30 Resp 18 07/07/18 00:30 BP 123/65 07/07/18 00:30 Pulse Ox 98 07/07/18 00:30 Gastrointestinal (Abdomen): Fundus firm at the umbilicus Neurologic: DTR 2(+), no clonus (1) Pre-eclampsia Trimester: unspecified trimester Qualified Code(s): O14.90 - Unspecified pre- eclampsia, unspecified trimester
[2018-07-07] MEDS ORDERED: IBUPROFEN 600 MG TAB PO PRN (08:17)
[2018-07-07] MEDS: LABETALOL HCL 100 MG TAB PO SCH (08:28)
--- NOTE | 2018-07-07 10:54 | Communication Note ---
Date of Service: July 07, 2018 Visited with patient, mom, and male scrap collector for about 15min. Listened to mom's concerns about patient being discharged today, and hear that they are a nxious about the patient having BP issues again once she is home. Patient's mom heard Dr Hargrove mention at the beginning of admission that a 48-hour minimum stay was anticipated, and notes that it is not yet 48 hours from admission, so she is unsure what to make of the discrepancy. The mom and male are at work during daytimes and worry about not being able to watch patient during daylight hours if she gets sick again. They also have concerns about patient having had seizures in the past and being pushed too hard by the responsibilities of caring for infant. A recent visit from the taxation consultant here on L&D may have exacerbated this concern, by making the patient aware that most moms are doing "more" at this point than she is; however Any has had an illness and return to hospital that have interfered with her success in , and she is doing her best. I reviewed Any's chart and reassured them that medically, the goals for treatment of acute preeclampsia are met, and that Dr Hargrove's mention of 48hours was likely intended to help them set reasonable expectations rather than to act as a hard minimum. However the discharge order is good for a calendar day and does not mean we have any santoro. We discussed all of this and came up with plan to have Any stay here through daylight hours today for further BP monitoring on just her oral labetalol (to simulate what might happen at home), to have help from nurses with care and to allow as much rest today as possible, and to have her go home after dinner if all looks well so that mom/male can be there with her through the night tonight. This seems to be acceptable to all parties.
--- NOTE | 2018-07-19 10:25 | Discharge Summary ---
ADMISSION DIAGNOSIS: preeclampsia. DISCHARGE DIAGNOSIS: preeclampsia. PROCEDURE: Magnesium sulfate prophylaxis. HISTORY OF PRESENT ILLNESS: The patient is a 17-year-old white female 1, para 1, delivered 5 days ago on 06/30. The patient had an induction for gestational hypertension. She had no history of blood pressure issues prior to . At her 36 and 5/7-week visit, she had a blood pressure of 140/100, then presented to labor and delivery with complaints of headache and elevated blood pressures and was induced for gestational hypertension. She was discharged a couple of days after delivery on labetalol 100 mg twice a day. The patient was feeling well until today when she was very fatigued that she has had little sleep. She woke up from a nap this evening and noted her face and eyes were swollen. Her mother took her blood pressure at home and it was very elevated. She called me and I advised her to come to the ED. She notes that all of her symptoms were noted when she woke up from her nap this evening. She notes a headache, which is better now and described as mild. No nausea and vomiting. Some blurry vision earlier, resolved now. No right upper quadrant pain, chest pain or shortness of breath. She notes she has been taking her labetalol regularly and she is . Workup in the Emergency Department revealed a negative head CT for brain bleed, normal creatinine, liver functions, platelets and H and H. Given that she is 5 days and was induced for gestational hypertension, we have to assume that this is a preeclampsia with severe range blood pressures and will admit for magnesium prophylaxis and observation For the rest of patient's detailed history, please see her dictated history. ASSESSMENT: This is 5 days from vaginal delivery for induction for gestational hypertension who presents with severe range blood pressures. The diagnosis of exclusion is preeclampsia. She has had IV labetalol 10 mg and 20 mg dosage in the ED which decreased her pressures. Plan is to give a mag bolus and treat blood pressures again as needed. We will monitor closely. HOSPITAL COURSE: The patient was admitted. She underwent magnesium sulfate prophylaxis and her pressures slowly improved. Her symptoms also improved. She was 24 hours, at 2 a.m. on magnesium sulfate prophylaxis of day 1 and it was discontinued. She was continued on labetalol 100 mg p.o. twice daily. The patient's blood pressures on admission, on 07/06 ranged from 141/90 to 180/120. Her pressures improved quite significantly after the initiation of magnesium sulfate, and on the day of discharge, her blood pressures, max was 155/90, but was running in the 120s-130s/60s-90s. She was discharged home with close followup and specific signs and symptoms for when to call.
== END 2018-07-07 15:05 | disposition home or self-care (01) | DRG 776 ==
LOC: ED 20:57 → 4S1 07-06 00:31 → 4S2 07-07 00:41

== ENCOUNTER 2023-11-08 08:57 | Inpatient (IN) ==
[2023-11-08] MEDS ORDERED: CALCIUM CARBONATE 500 MG CHEWABLE TAB PO PRN (09:09)
[2023-11-08] MEDS ORDERED: OXYTOCIN 30 UNITS/NSS 30 UNITS/500 ML BAG IV PRN ×2 (09:09→11:55)
[2023-11-08] MEDS ORDERED: ACETAMINOPHEN 500 MG TAB PO PRN (09:09)
[2023-11-08] MEDS ORDERED: LIDOCAINE 1% LOCAL 20 ML VIAL INFIL PRN (09:09)
[2023-11-08 09:38] LABS: Hematocrit (blood only) 38.5 % (37.0-47.0); Mean Corpuscular Hemoglobin 33.1 pg (25.0-34.0); Mean Corpuscular Hgb Conc 36.4 g/dL (32.0-36.0); Mean Platelet Volume 9.4 fL (9.4-12.4); Platelet Count 196 K/uL (130-400); RDW Coefficient of Variation 12.5 % (11.5-14.5); RDW Standard Deviation 40.9 fL (36.4-46.3); Red Blood Count 4.23 M/uL (4.20-5.40); White Blood Count 6.51 K/ul (4.8-10.8)
[2023-11-08] MEDS: LACTATED RINGER'S 1,000 ML IV PRN (09:45)
[2023-11-08] MEDS ORDERED: SODIUM CHLORIDE 0.9% PF INJ 10 ML VIAL ONE (09:50)
[2023-11-08] MEDS ORDERED: ePHEDrine sulfate 50 MG/ML AMP ONE (09:50)
--- NOTE | 2023-11-08 09:50 | Anesthesiology Consultation ---
Date of Service November 08, 2023 Assessment & Plan Chart Review Chart Review: Acceptable Risk for Surgery, Patient NOT seen in Pre Admission Testing and Acceptable Risk for Labor Epidural Consults Requested none ASA ASA2 Proposed Anesthesia Anesthesia Type: Labor Epidural and CSE History Height/Weight Height: 5 ft 3 in Weight: 57.153 kg Allergies Allergy/AdvReac Type Severity Reaction Status Date / Time pollen extracts Allergy Intermediate ITCHY, Verified 11/02/23 14:43 WATERY EYES, SNEEZING, CONGESTION RAW FRUITS Allergy Severe THROAT Uncoded 11/02/23 14:43 SWELLS, HIVES RAW VEGETABLES Allergy Severe THROAT Uncoded 11/02/23 14:43 SWELLS, HIVES Medications Home Medications Medication Instructions Recorded Confirmed Last Taken 21-iron fu-folic acid 1 cap PO DAILY 03/25/23 11/08/23 11/07/23 [ Complete] levothyroxine 75 mcg tablet 75 mcg PO DAILY #30 tabs 09/28/23 11/08/23 11/07/23 fluticasone propionate 50 1 spray intranasal DIRECTED 11/02/23 11/08/23 11/07/23 mcg/actuation nasal spray,suspension Active Medications Generic Name Dose Route Start Last Admin Trade Name Freq PRN Reason Stop Dose Admin Lactated Ringer's 1,000 mls @ 125 mls/hr 11/08/23 09:09 11/08/23 09:45 Lr IV 11/10/23 09:08 999 mls/hr .Q8H PRN Administration L&D Protocol Protocol Past Medical History Medical History Hypothyroidism Ryan's disease Encounter for routine follow-up Encounter for routine gynecological examination Encounter for insertion subdermal contraceptive Asthma Secondary amenorrhea 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 Amenorrhea Brain bleed At Seizure Varicella vaccination Pre-eclampsia Gestational hypertension MTHFR gene mutation Hypothyroid Ryan's disease Exercise / Class Metabolic Activity II 4-5 Yardwork/Stairs/Walk up hill Past Family History Family History Other Cancer Diabetes Heart disease Hypertension Seizures Denies family history of Ovarian cancer Breast cancer Colorectal cancer Past Surgical History Surgical History No pertinent past surgical history Past Anesthesia History No Hx of Anesthesia Complications and No Family Hx of Anesthesia Complications History of PONV No Hx of PONV and No Hx of Motion Sickness Social History Smoking Status: Never smoker Do You Dip or Chew Tobacco: No Hx Alcohol Use: No Hx Substance Use: No substance use type: does not use Physical Exam Vital Signs Last Vital Signs Temp 36.6 C 11/08/23 09:17 Pulse 113 H 11/08/23 09:29 Resp 18 11/08/23 09:17 BP 115/79 11/08/23 09:29 Testing Laboratory Results 11/08/23 09:21
--- NOTE | 2023-11-08 09:52 | History & Physical Report ---
Date of Service November 08, 2023 Assessment & Plan (1) Normal labor: Plan: Any is a 23-year-old G2, P1 currently at 39 weeks 4 days gestational age presents in labor. 1. Fetus: Category 1 tracing 2. Labor: Appears to be in active labor. Will admit as indicated. Will plan for rupture of membranes after epidural 3. GBS negative 4. Vitals within normal limits (2) Encounter for supervision of normal in multigravida: History of Present Illness Primary Care Provider: Simeon Serrano DO Any is a 23-year-old currently at 39 weeks 4 days gestational age presents in labor. Has a history of preeclampsia with first and was maintained on baby aspirin daily with this . OB Labs: Blood Type B Positive 04/01/23 Antibody Screen NEGATIVE 04/01/23 Hemoglobin 11.8 g/dl (12.0-16.0) L 08/18/23 Hematocrit 33.8 % (37.0-47.0) L 08/18/23 Mean Corpuscular Volume 92.5 fL (80.0-100.0) 06/10/23 Platelet Count 188 K/uL (130-400) 06/10/23 Rubella IgG Antibody Immune (Immune) 04/01/23 Rapid Plasma Reagin Nonreactive (Nonreactive) 04/01/23 Hepatitis B Surface Antigen NEG (NEG) 12/01/17 Hepatitis B Surface Antigen. NON-REACTIVE (NON-REACTIVE) 04/01/23 Hepatitis C Antibody (EIA) NON-REACTIVE (NON-REACTIVE) 04/01/23 HIV (1&2) Ab and P24 Ag, 4th Gener NEG (NEG) 12/01/17 HIV (1&2) Ag and Ab Confirmation NON-REACTIVE (NON-REACTIVE) 04/01/23 Glucose 1 Hour 50 gm Load 136 mg/dl (70-130) H 05/27/23 Maternal Serum Alpha Fetoprotein 48.7 ng/mL 05/27/23 OB Optional Labs: Chlamydia trachomatis RNA Not Detected (NotDetected) 04/01/23 Neisseria gonorrhoeae RNA Not Detected (NotDetected) 04/01/23 Thyroid Stimulating Hormone (TSH) 2.068 uIu/ml (0.300-4.500) 09/29/23 Alpha Fetoprotein Triple Screen SEE NOTE 05/27/23 Labs Reviewed: cfdna-low risk--mln Allergies Allergy/AdvReac Type Severity Reaction Status Date / Time pollen extracts Allergy Intermediate ITCHY, Verified 11/02/23 14:43 WATERY EYES, SNEEZING, CONGESTION RAW FRUITS Allergy Severe THROAT Uncoded 11/02/23 14:43 SWELLS, HIVES RAW VEGETABLES Allergy Severe THROAT Uncoded 11/02/23 14:43 SWELLS, HIVES Home Medications Medication Instructions Recorded Confirmed Type 21-iron fu-folic acid 1 cap PO DAILY 03/25/23 11/08/23 History [ Complete] levothyroxine 75 mcg tablet 75 mcg PO DAILY #30 tabs 09/28/23 11/08/23 Rx fluticasone propionate 50 1 spray intranasal DIRECTED 11/02/23 11/08/23 History mcg/actuation nasal spray,suspension Patient History Medical History Hypothyroidism Ryan's disease Encounter for routine follow-up Encounter for routine gynecological examination Encounter for insertion subdermal contraceptive Asthma Secondary amenorrhea 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 Amenorrhea Brain bleed At Seizure Varicella vaccination Pre-eclampsia Gestational hypertension MTHFR gene mutation Hypothyroid Ryan's disease Surgical History No pertinent past surgical history Family History Other Cancer Diabetes Heart disease Hypertension Seizures Denies family history of Ovarian cancer Breast cancer Colorectal cancer Social History Smoking Status: Never smoker Second Hand Exposure: No; Do You Dip or Chew Tobacco: No; Hx Alcohol Use: No Hx Substance Use: No Preferred Language: Macedonian Communication Ability: Effective Appliance Assembler Required: No Beliefs That Will Affect Care: None marital status: Single marital status details: Eboni Thompson (29) [phone] Current Living Situation: Family Current Living Situation Comment: lives with fob, daughter, cat-fob changing litter current occupational status: employed current occupation: [employer] Other Information That Helps Us Care for You: No Feels Safe at Home: Yes Safety Concerns: Feels Safe At This Time Assistive Devices: Contacts Physical Exam Genitourinary: Manual OB Exam: + cervical dilation 5 cm and + cervical effacement 90% OB Exam Monitor Tracing: + external FHT monitor used, + external uterine monitor used, + category I and + normal FHT variability; no early decelerations present, no late decelerations present and no variable decelerations Coding Level of Care Code None Diagnoses Normal labor O80; Z37.9 Encounter for supervision of normal in multigravida Z34.80
[2023-11-08] MEDS: fentaNYL citrate PF 100 MCG/2 ML VIAL ONE (10:23)
[2023-11-08] MEDS: BUPIVACAINE 0.25% PF 30 ML VIAL ONE (10:23)
[2023-11-08] MEDS: LIDOCAINE 2%/EPINEPHRINE 1:200,000 20 ML PF ONE (10:23)
[2023-11-08] MEDS: fentANYL 2 MCG/ML BUPIVacaine 0.125%-NSS 100ML BAG ONE (10:24)
[2023-11-08] MEDS ORDERED: SODIUM CHLORIDE 0.9% PF INJ 10 ML VIAL EPI STA (10:28)
[2023-11-08] MEDS ORDERED: LIDOCAINE 2% MPF LOCAL 5 ML VIAL EPI PRN (10:28)
[2023-11-08] MEDS ORDERED: PROMETHAZINE HCL 6.25 MG in SODIUM CHLORIDE 0.9% 50 ML IV PRN (10:28)
[2023-11-08] MEDS ORDERED: fentaNYL citrate PF 100 MCG/2 ML VIAL EPI STA (10:28)
[2023-11-08] MEDS ORDERED: diphenhydrAMINE 50 MG/ML VIAL IV PRN (10:28)
[2023-11-08] MEDS ORDERED: ePHEDrine sulfate 50 MG/ML AMP IV PRN (10:28)
[2023-11-08] MEDS ORDERED: BUPIVACAINE 0.25% PF 30 ML VIAL EPI PRN (10:28)
[2023-11-08] MEDS ORDERED: LIDOCAINE 2%/EPINEPHRINE 1:200,000 20 ML PF EPI STA (10:28)
[2023-11-08] MEDS ORDERED: ROPIVACAINE 0.5% PF 5 MG/ML 20 ML VIAL EPI PRN (10:28)
[2023-11-08] MEDS ORDERED: NALOXONE HCL 1 MG in SODIUM CHLORIDE 0.9% 1,000 ML IV PRN (10:28)
[2023-11-08] MEDS ORDERED: ONDANSETRON INJ 2 MG/ML 2 ML VIAL IV PRN (10:28)
[2023-11-08] MEDS ORDERED: NALOXONE HCL 0.4 MG/1 ML VIAL/CARP IV PRN (10:28)
[2023-11-08] MEDS ORDERED: SODIUM CHLORIDE 0.9% PF INJ 10 ML VIAL EPI PRN (10:28)
[2023-11-08] MEDS ORDERED: BUPIVACAINE 0.25% PF 30 ML VIAL EPI STA (10:28)
[2023-11-08] MEDS ORDERED: NALBUPHINE HCL 5 MG in SYRINGE 0 ML IV PRN (10:28)
[2023-11-08] MEDS ORDERED: fentaNYL citrate PF 100 MCG/2 ML VIAL EPI PRN (10:28)
[2023-11-08] MEDS ORDERED: fentANYL 2 MCG/ML BUPIVacaine 0.125%-NSS 100ML BAG EPI PRN (10:28)
[2023-11-08] MEDS ORDERED: bisacodyL 10 MG SUPP PR PRN (11:55)
[2023-11-08] MEDS ORDERED: DIPHTHER/TETAN/PERTUS Vaccine (Tdap, Adol/Adult) 0.5mL IM ONE (11:55)
[2023-11-08] MEDS ORDERED: HYDROCORTISONE ACETATE 25 MG SUPP PR PRN (11:55)
[2023-11-08] MEDS ORDERED: ACETAMINOPHEN 325 MG TAB PO PRN (11:55)
--- NOTE | 2023-11-08 12:21 | Anesthesia Procedure Note ---
Date of Service November 08, 2023 Anesthesia Post Epidural Note Vital Signs Vital Signs: Temp Pulse Resp BP Pulse Ox 36.6 C 87 18 136/66 92 11/08/23 11:55 11/08/23 12:15 11/08/23 11:55 11/08/23 12:15 11/08/23 11:41 Pain Intensity Lower Abdomen: Pain Intensity: 8 Notes Mental Status: alert / awake / arousable Nausea / Vomiting: adequately controlled Pain: adequately controlled Airway Patency, RR, SpO2: stable & adequate BP & HR: stable & adequate Hydration State: stable & adequate Neuraxial Anesthesia: was administered and sensory block is resolving Anesthetic Complications: no major complications apparent Epidural: Removed without complications and With tip intact
[2023-11-08] MEDS: BENZOCAINE 20% SPRY 85 APPLN/85 GM CAN EXT PRN (13:42)
[2023-11-08] MEDS: IBUPROFEN 600 MG TAB PO PRN (13:42)
--- NOTE | 2023-11-08 16:10 | Delivery Summary ---
Vaginal Delivery Summary Date of Service November 08, 2023 Vaginal Delivery Summary Progressed to 10 cm dilated, 100% effaced +1 station and pushed over intact perineum with epidural anesthesia and delivered a viable female with weight pending Apgars of 8 and 9 at 1 and 5 minutes respectively. Head delivered without difficulty followed by shoulders and body. was noted to be vigorous soon after delivery and a 1 minute delayed cord clamping was initiated. Cord was then double clamped and cut. remained in maternal abdomen. Cord blood obtained and attention was turned delivery the placenta was of intact with three-vessel cord with gentle cord traction. Inspection of the perineum vagina cervix there is noted to be no lacerations. Needle sponge and instrument counts were correct at the completion of the case. Both mother and stable in the immediate post delivery period. [facility] Vaginal Delivery Charge Delivery Type Details:
[2023-11-08] MEDS: DOCUSATE SODIUM 100 MG CAP PO SCH (22:25)
--- NOTE | 2023-11-09 07:17 | Obstetrical Progress Note ---
Date of Service November 09, 2023 Assessment & Plan (1) Encounter for care and examination after delivery: Day 1 status post vaginal delivery. Doing well and stable for discharge if preferred. Subjective Ambulation: ambulating normally Voiding: no voiding problems Passing Gas:: Yes Diet Tolerance:: regular diet Lochia:: Moderate Feeding Type:: breast feeding Physical Exam Constitutional WD/WN, vitals as above Respiratory normal respiratory effort; no respiratory distress and no labored breathing Cardiovascular Extremities: no calf tenderness Gastrointestinal (Abdomen) Inspection/Auscultation: abdomen normal to inspection; abdomen not distended Percussion/Palpation: abdomen soft; abdomen nontender, no guarding and abdomen not rigid Genitourinary OB Exam Abdomen: + fundal height Fundus: + firm and + relation to umbilicus (Below); not tender or not boggy Results & Data Vital Signs (Past 12 Hours) Vital Signs Temp Pulse Resp BP Pulse Ox O2 Del Method 11/09/23 03:29 36.4 C L 72 18 128/90 98 Room Air 11/08/23 23:07 36.6 C 80 16 111/73 97 Room Air 11/08/23 20:30 37.0 C 85 16 116/87 98 Room Air
[2023-11-09] MEDS: FERROUS SULFATE 325 MG TAB PO SCH (08:08)
[2023-11-09] MEDS: PRENATAL VITAMIN 1 TAB PO SCH (08:08)
[2023-11-09] MEDS ORDERED: bisacodyL 5 MG TABEC PO SCH (20:00)
== END 2023-11-09 14:05 | disposition home or self-care (01) | DRG 807 ==
LOC: OPB 08:57 → 4S1 09:01 → 4E2 14:44

== ENCOUNTER 2023-11-14 12:17 | Inpatient (IN) ==
--- NOTE | 2023-11-14 12:51 | Emergency Department Note ---
History of Present Illness General Chief complaint: Hypertension Stated complaint: HYPERTENSION - 5 WEEKS POST Time Seen by Provider: 11/14/23 12:30 History of Present Illness Provider complaint: Chest pain Maximum Pain Intensity: 7 23-year-old 5 days after spontaneous vaginal delivery presents emergency department for chest pain. Patient reports her pain has been going on for the last 5 days ever since she had her baby. She reports the pain is in her bilateral breast and she reports that her right breast feels like it has lumps in it since she has been feeding her baby. The patient reports that when she breast-feeds her baby her lumps get smaller and she feels better but then when the milk reaccumulates starts happening and. She reports fevers with a Tmax of 99.9 and she states her fevers go down with breast-feeding also. Patient reports that it feels very similar to when she was diagnosed with preeclampsia in the past after having her first child. She reports mild headache. Mild difficulty breathing. Home Medications Medication Instructions Recorded Confirmed Type 21-iron fu-folic acid 1 cap PO DAILY 03/25/23 11/14/23 History [ Complete] levothyroxine 75 mcg tablet 75 mcg PO DAILY #30 tabs 09/28/23 11/14/23 Rx fluticasone propionate 50 1 spray intranasal DIRECTED 11/02/23 11/14/23 History mcg/actuation nasal spray,suspension nifedipine 30 mg tablet,extended 30 mg PO DAILY #14 tabs 11/14/23 11/14/23 Rx release Allergies Allergy/AdvReac Type Severity Reaction Status Date / Time raw vegetable Allergy Severe THROAT Verified 11/09/23 08:42 SWELLS, HIVES pollen extracts Allergy Intermediate ITCHY, Verified 11/02/23 14:43 WATERY EYES, SNEEZING, CONGESTION RAW FRUITS Allergy Severe THROAT Uncoded 11/02/23 14:43 SWELLS, HIVES Past Med/Surg History Problem List (Updated 11/14/23 @ 15:24 by Cliff Quintana MD) Pre-eclampsia, (Acute) Chest pain (Acute) Breast pain (Acute) Encounter for care and examination after delivery Pelvic pain affecting Hematuria Hypothyroid in , antepartum [place] Asthma (Chronic) Well-controlled Medical History Hypothyroidism Ryan's disease Encounter for routine follow-up Encounter for routine gynecological examination Encounter for insertion subdermal contraceptive Asthma Secondary amenorrhea 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 Amenorrhea Brain bleed At Seizure Varicella vaccination Pre-eclampsia Gestational hypertension MTHFR gene mutation Hypothyroid Ryan's disease Surgical History No pertinent past surgical history Family History Other Cancer Diabetes Heart disease Hypertension Seizures Denies family history of Ovarian cancer Breast cancer Colorectal cancer Social History Smoking Status: Never smoker Second Hand Exposure: No; Do You Dip or Chew Tobacco: No; Hx Alcohol Use: No Hx Substance Use: No Preferred Language: Khmer Communication Ability: Effective Database Designer Required: No Beliefs That Will Affect Care: None marital status: Single marital status details: Eboni Thompson (29) [phone] Current Living Situation: Family Current Living Situation Comment: lives with fob, daughter, cat-fob changing litter current occupational status: employed current occupation: [employer] Feels Safe at Home: Yes Assistive Devices: Contacts Physical Exam Vital Signs Vital Signs - 24 hr 11/14/23 12:25 11/14/23 12:59 11/14/23 13:15 Temperature 36.4 C L Temperature Source Temporal Artery Scan Pulse Rate 77 Pulse Rate [Apical] 61 Respiratory Rate 18 18 Respiratory Effort / Characteristics Non-Labored Respiratory Depth Normal Respiratory Pattern Regular Blood Pressure 133/89 Blood Pressure [Left Arm] 142/100 H Blood Pressure Mean 103 Blood Pressure Mean [Left Arm] 114 Pulse Oximetry 98 98 100 Oxygen Delivery Method Room Air Room Air Room Air Sepsis Recent Fever Within 48 Hours No Sepsis New/Unexplained Change in Mental Status N/A Sepsis Action Taken by Nursing No Action Required 11/14/23 13:16 11/14/23 14:21 11/14/23 14:32 Temperature Temperature Source Pulse Rate 71 Pulse Rate [Apical] 65 Respiratory Rate 16 Respiratory Effort / Characteristics Respiratory Depth Respiratory Pattern Blood Pressure Blood Pressure [Left Arm] 140/108 H 151/110 H Blood Pressure Mean Blood Pressure Mean [Left Arm] 118 123 Pulse Oximetry 99 Oxygen Delivery Method Room Air Sepsis Recent Fever Within 48 Hours Sepsis New/Unexplained Change in Mental Status Sepsis Action Taken by Nursing 11/14/23 14:42 11/14/23 14:55 Temperature Temperature Source Pulse Rate Pulse Rate [Apical] 66 Respiratory Rate 14 Respiratory Effort / Characteristics Respiratory Depth Respiratory Pattern Blood Pressure Blood Pressure [Left Arm] 138/109 H 161/110 H Blood Pressure Mean Blood Pressure Mean [Left Arm] 118 127 Pulse Oximetry 99 Oxygen Delivery Method Room Air Sepsis Recent Fever Within 48 Hours Sepsis New/Unexplained Change in Mental Status Sepsis Action Taken by Nursing Physical Exam HENT: Exam performed. -Head: Normocephalic and atraumatic. -Right Ear: External ear normal. No mastoid erythema -Left Ear: External ear normal. No mastoid erythema -Mouth/Throat: The oropharynx is clear and moist. No trismus in the jaw. No dental abscesses or uvula swelling. No oropharyngeal exudate or tonsillar abscesses. EYES: Conjunctivae and EOM are normal. Pupils are equal, round, and reactive to light. Right eye exhibits no discharge. Left eye exhibits no discharge. No scleral icterus. NECK: Normal range of motion. Neck supple. No JVD present. No spinous process tenderness present. No rigidity. No tracheal deviation and normal range of motion present. CV: Normal rate, regular rhythm, normal heart sounds and intact distal pulses. There is no peripheral edema. Palpable radial pulses bue. PULM/CHEST: Effort normal and breath sounds normal. No respiratory distress. No stridor. She has no wheezes. She has no rales. -Chest Wall: She exhibits no tenderness. BREAST: Breast exam performed with female nurse Natalya at bedside. There is no overlying erythema or warmth to either breast. There are some palpable lesions in the right breast at the 7 o'clock position that are tender. They do not feel circumferential but more longitudinal is thought that this could possibly represent a clogged duct. There is no swelling of either breast. ABD: The abdomen is soft. There is no tenderness. There is no rebound, no guarding. MUSC/SKEL: Normal range of motion. There is no peripheral edema, tenderness or deformity. LYMPH: No cervical adenopathy. NEURO: She is alert and oriented to person, place, and time. She has normal strength. No cranial nerve deficit or sensory deficit. Coordination and gait normal. GCS eye subscore is 4. GCS verbal subscore is 5. GCS motor subscore is 6. Cerebellar tests wnl. SKIN: Skin is warm and dry. She is not diaphoretic. PSYCH: She has a normal mood and affect. Behavior is normal. Judgment and thought content normal. Course Course 1230: The patient was evaluated in room C7. A complete history and physical exam was performed Cardiac monitoring: An order was placed for continuous cardiac monitoring. The monitor shows a rate of 70 with sinus rhythm interpreted by me 1436: Labs within normal limits with exception of urinalysis showing 2+ protein. LFTs and platelets are within normal limits. No swelling of the legs. CT of the head and CTA of the chest are within normal limits. On reassessment the patient seems very anxious. Her repeat blood pressure is 151/110. Discussed the case with Dr. Lambert on-call ASSOCIATE MERCHAND[employer] who did state that her blood pressures in the office are usually better than this. He asked for the patient to have her blood pressure rechecked and 5 minutes. 1444: Repeat blood pressure 138/109. Dr. Lambert stated that he does not think that the patient needs to be admitted to the hospital at this time and I agree with his recommendation. He recommends starting the on nifedipine 30 mg extended release daily and follow-up on Thursday for reassessment. First dose will be given in the emergency department. Patient was advised to not breast- feed for the next 24 hours since she received IV contrast for CT. 1503: At time of discharge patient's blood pressure 161/110. We discussed with Dr. Lambert and he states he will begin to admit the patient. He recommends 4 g of magnesium over 20 minutes. 1522: Dr. Henson at bedside and will be admitting the patient. Administered Medications Discontinued Medications Ioversol (Optiray 320 125ml) 119 ml IV ONCE ONE Stop: 11/14/23 13:05 Last Admin: 11/14/23 13:05 Dose: 119 ml Documented By: TALIB Nifedipine (Nifedipine Extended Rel 30 Mg Tabcr) 30 mg PO NOW STA Stop: 11/14/23 14:47 Last Admin: 11/14/23 15:00 Dose: 30 mg Documented By: FERMIN Critical Care Time Critical Care Time: Yes Total Critical Care Time: 52 I have personally spent greater than 52 minutes of critical care time in the direct management of this patient. This includes bedside care, interpretation of diagnostic studies, and testing, discussion with consultants, patient, and family members, and other required patient management activities. This 52 minutes is in excess of all separately billable procedures. Medical Decision Making Laboratory Data Attestation: I reviewed the patient's lab results. 11/14/23 12:46 11/14/23 12:46 Lab Results 11/14/23 11/14/23 11/14/23 Range/Units 12:46 12:56 13:56 WBC 5.90 (4.8-10.8) K/ul RBC 4.30 (4.20-5.40) M/uL Hgb 14.2 (12.0-16.0) g/dl POC Hgb 12.6 (12.0-16.0) g/dl Hct 39.8 (37.0-47.0) % POC Hct 37 (37-47) % MCV 92.6 (80.0-100.0) fL MCH 33.0 (25.0-34.0) pg MCHC 35.7 (32.0-36.0) g/dL RDW Std Deviation 41.5 (36.4-46.3) fL RDW Coeff of Gilda 12.4 (11.5-14.5) % Plt Count 321 (130-400) K/uL MPV 8.9 L (9.4-12.4) fL Immature Gran % (Auto) 0.3 % Neut % (Auto) 58.0 % Lymph % (Auto) 34.4 % Kleberg % (Auto) 4.1 % Eos % (Auto) 2.5 % Baso % (Auto) 0.7 % Neut # (Auto) 3.42 (1.40-6.50) K/uL Lymph # (Auto) 2.03 (1.20-3.40) K/uL Kleberg # (Auto) 0.24 (0.11-0.59) K/uL Eos # (Auto) 0.15 (0.00-0.50) K/uL Baso # (Auto) 0.04 (0.00-0.20) K/uL Immature Gran # (Auto) 0.02 (0.01-0.20) K/uL PT 10.3 (9.0-12.0) Seconds INR 0.9 (0.9-1.1) APTT 26 (21-31) Seconds PTT Ratio 1.0 POC Sodium 140 (135-144) mmol/L Sodium 139 (136-145) mmol/L POC Potassium 3.6 (3.3-5.0) mmol/L Potassium 3.8 (3.5-5.1) mmol/L POC Chloride 107 (101-112) mmol/L Chloride 106 (98-107) mmol/L Carbon Dioxide 25 (21-32) mmol/L POC Total CO2 21 L (24-31) mmol/L Anion Gap 8 (3-11) POC Anion Gap 16.0 (16-25) mmol/L POC BUN 8 (7-18) mg/dl BUN 9 (6-23) mg/dl Creatinine 0.65 (0.6-1.2) mg/dl POC Creatinine 0.6 (0.6-1.3) mg/dl Est Cr Clr Drug Dosing 105.1 ml/min Est GFR ( Amer) 143.0 ml/min Est GFR (Non-Af Amer) 123.4 ml/min BUN/Creatinine Ratio 13.8 (10-20) Glucose 76 (70-99(Fasting)) mg/dl POC Glucose (other) 79 (70-99) mg/dl Calcium 8.9 (8.6-10.3) mg/dl POC Ioniz Calcium Karissa 1.18 (1.12-1.32) mmol/l Total Bilirubin 0.4 (0.2-1.0) mg/dl Direct Bilirubin 0.0 (0-0.2) mg/dl AST 17 (13-39) U/L ALT 12 (7-52) U/L Alkaline Phosphatase 133 H (34-104) U/L Troponin I High Sens 2.8 (0-14) pg/ml Total Protein 6.9 (6.0-8.3) gm/dl Albumin 3.8 (3.4-5.0) gm/dl Urine Color Yellow Urine Appearance Cloudy A (Clear) Urine pH 7.0 (4.5-7.5) Ur Specific Lind[place] 1.007 (1.000-1.030) Urine Protein 2+ H (Negative) Urine Glucose (UA) Negative (Negative) Urine Ketones Negative (Negative) Urine Blood 3+ H (Negative) Urine Nitrite Negative (Negative) Urine Bilirubin Negative (Negative) Urine Urobilinogen Negative (Negative) Ur Leukocyte Esterase 3+ H (Negative) Urine WBC (Auto) >50 H (0-5) /hpf Urine RBC (Auto) 11-20 H (0-2) /hpf U Hyaline Cast (Auto) 0-2 (0-2) /lpf U Epithel Cells (Auto) 3-5 H (0-2) /hpf Urine Bacteria (Auto) None Seen (None Seen) Imaging Data Radiologist's Impression: Chest CTA 11/14/23 12:43 CT angio chest PE protocol CLINICAL HISTORY: ro PE TECHNIQUE: Multidetector row helical CT of the chest was performed with angiographic protocol. Coronal and sagittal reformations were obtained. Coronal and sagittal MIPS were obtained from the axial data set and were submitted for review. Automated dose lowering techniques and/or adjustment according to patient size were utilized for this exam. Comparison: Comparison is made to chest radiograph 07/13/2018 FINDINGS: Lungs and pleura: Normal. Heart and pericardium: Heart size is normal. No pericardial effusion. Vessels: No evidence of pulmonary embolism. Mediastinum and neno: Unremarkable. Chest wall and lower neck: Unremarkable. Abdomen: Unremarkable. Bones: Unremarkable. IMPRESSION: No acute abnormality and in particular no evidence of pulmonary embolus. ACT 112: Negative or not required by law. Electronically signed by: Foster Monsalve M.D. 11/14/2023 1:[address] 11/14/23 12:43 CT head/brain wo con CLINICAL HISTORY: akhtar Technique: Contiguous axial CT images of the head were acquired from the base of the skull to the vertex without intravenous contrast administration. Images were viewed in brain, subdural and bone windows. Automated dose lowering techniques and/or adjustment according to patient size were utilized for this exam. 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 No acute abnormalities are seen. Imaged portions of the paranasal sinuses and mastoid air cells are clear. The orbits appear normal. There are no acute fractures of the calvaria or scalp swelling. Impression: No acute intracranial hemorrhage, no evidence of acute territorial infarction or other acute intracranial disease process. 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 ACT 112: Negative or not required by law. Electronically signed by: Foster Monsalve M.D. 11/14/2023 1:27 PM ECG Data Attestation: I personally reviewed and interpreted this ECG as follows: Additional Comments: Sinus rhythm with rate of 68. TX 136 QRS [address] elevation or ST depression. There are inverted P waves in leads II and III MDM Narrative 1230: The patient was evaluated in room C7. A complete history and physical exam was performed Cardiac monitoring: An order was placed for continuous cardiac monitoring. The monitor shows a rate of 70 with sinus rhythm interpreted by me 1436: Labs within normal limits with exception of urinalysis showing 2+ protein. LFTs and platelets are within normal limits. No swelling of the legs. CT of the head and CTA of the chest are within normal limits. On reassessment the patient seems very anxious. Her repeat blood pressure is 151/110. Discussed the case with Dr. Lambert on-call ASSOCIATE [employer]CHAND[employer] who did state that her blood pressures in the office are usually better than this. He asked for the patient to have her blood pressure rechecked and 5 minutes. 1444: Repeat blood pressure 138/109. Dr. Lambert stated that he does not think that the patient needs to be admitted to the hospital at this time and I agree with his recommendation. He recommends starting the on nifedipine 30 mg extended release daily and follow-up on Thursday for reassessment. First dose will be given in the emergency department. Patient was advised to not breast- feed for the next 24 hours since she received IV contrast for CT. 1503: At time of discharge patient's blood pressure 161/110. We discussed with Dr. Lambert and he states he will begin to admit the patient. He recommends 4 g of magnesium over 20 minutes. 1522: Dr. Henson at bedside and will be admitting the patient. Impression & Plan Breast pain, Chest pain, Pre-eclampsia, Discharge Plan Visit Data Chief Complaint: Hypertension Stated Complaint: HYPERTENSION - 5 WEEKS POST ED Provider: Cliff Quintana Discharge Problem: Breast pain, Chest pain, Pre-eclampsia, Patient Disposition: Admitted As Inpatient Discharge Instructions Dhara/Other Patient Handouts: Hypertension Dc, ED Chest Pain, Noncardiac Activity Restrictions/Additional Instructions: Begin taking the blood pressure medication prescribed to you. Do not breast-feed for next 24 hours, expressed your breastmilk out manually or with the pump and discard for the next 24 hours. Forms Stand Alone Forms: My [facility] [address], Important Visit Information Prescriptions Prescriptions: New nifedipine 30 mg tablet extended release 30 mg PO DAILY Qty: 14 0RF No Action levothyroxine 75 mcg tablet 75 mcg PO DAILY Qty: 30 3RF Rx Instructions: Take ONE tablet first thing in the morning 30-40 minutes before any other oral intake. 21-iron fu-folic acid [ Complete] 1 cap PO DAILY fluticasone propionate 50 mcg/actuation Odanah,Suspension 1 spray INTRANASAL DIRECTED Referrals Referrals: Wiley Henson MD, FACOG [Physician] - 11/16/23 (Follow-up on Thursday.) Simeon Serrano DO [Primary Care Provider] -
[2023-11-14] MEDS: OPTIRAY 320 125ml IV ONE (13:05)
[2023-11-14 13:08] LABS: iSTAT Creatinine 0.6 mg/dl (0.6-1.3); iSTAT Hemoglobin 12.6 g/dl (12.0-16.0); iSTAT Ionized Calcium 1.18 mmol/l (1.12-1.32); iSTAT Potassium 3.6 mmol/L (3.3-5.0)
[2023-11-14 13:18] LABS: Basophils # (auto) 0.04 K/uL (0.00-0.20); Basophils % (auto) 0.7 %; Eosinophils # (auto) 0.15 K/uL (0.00-0.50); Eosinophils % (auto) 2.5 %; Hematocrit (blood only) 39.8 % (37.0-47.0); Hemoglobin 14.2 g/dl (12.0-16.0); Immature Granulocytes # (auto) 0.02 K/uL (0.01-0.20); Immature Granulocytes % (auto) 0.3 %; Lymphocytes # (auto) 2.03 K/uL (1.20-3.40); Lymphocytes % (auto) 34.4 %; Mean Corpuscular Hgb Conc 35.7 g/dL (32.0-36.0); Mean Corpuscular Volume 92.6 fL (80.0-100.0); Mean Platelet Volume 8.9 fL (9.4-12.4); Monocytes # (auto) 0.24 K/uL (0.11-0.59); Monocytes % (auto) 4.1 %; Neutrophils # (auto) 3.42 K/uL (1.40-6.50); Platelet Count 321 K/uL (130-400); RDW Coefficient of Variation 12.4 % (11.5-14.5); RDW Standard Deviation 41.5 fL (36.4-46.3)
--- NOTE | 2023-11-14 13:30 | CT Scan Report ---
CT head/brain wo con CLINICAL HISTORY: akhtar Technique: Contiguous axial CT images of the head were acquired from the base of the skull to the yonatan mauricio without intravenous contrast administration. Images were viewed in brain, subdural and bone [facility]. Automated dose lowering techniques and/or adjustment according to patient size were utilized for this exam. 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 No acute abnormalities are seen. Imaged portions of the paranasal sinuses and mastoid air cells are clear. The orbits appear normal. There are no acute fractures of the calvaria or scalp swelling. Impression: No acute intracranial hemorrhage, no evidence of acute territorial infarction or other acute intracra nial disease process. 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 ACT 112: Negative or not required by law. Electronically signed by: Foster Monsalve M.D. 11/14/2023 1:27 PM
[2023-11-14 13:31] LABS: Albumin Level 3.8 gm/dl (3.4-5.0); BUN Creatinine Ratio 13.8 (10-20); Bilirubin,Total 0.4 mg/dl (0.2-1.0); Calcium 8.9 mg/dl (8.6-10.3); Creatinine Clr Calc Pharmacy 105.1 ml/min; Est GFR (Non-African American) 123.4 ml/min; Potassium 3.8 mmol/L (3.5-5.1); Total Protein 6.9 gm/dl (6.0-8.3)
--- NOTE | 2023-11-14 13:35 | Electrocardiogram Report ---
Test Reason : Blood Pressure : / mmHG Vent. Rate : 068 BPM Atrial Rate : 068 BPM P-R Int : 136 ms QRS Dur : 068 ms QT Int : 360 ms P-R-T Axes : 028 076 073 degrees QTc Int : 382 ms Normal sinus rhythm with sinus arrhythmia Normal ECG When compared with ECG of 10-JUN-2023 12:18, No significant change was found Confirmed by Tai Jiménez ([id number]) on 11/14/2023 1:34:46 PM Referred By: REFERRED SELF Confirmed By:Tai Jiménez
[2023-11-14 13:37] LABS: Troponin I High Sensitivity 2.8 pg/ml (0-14)
[2023-11-14 13:42] LABS: INR 0.9 (0.9-1.1); Partial Thromboplastin Time 26 Seconds (21-31); Prothrombin Time 10.3 Seconds (9.0-12.0)
--- NOTE | 2023-11-14 13:48 | CT Scan Report ---
CT angio chest PE protocol CLINICAL HISTORY: ro PE TECHNIQUE: Multidetector row helical CT of the chest was performed with angiographic protocol. Garcia l and sagittal reformations were obtained. Coronal and sagittal MIPS were obtained from the axial glenn a set and were submitted for review. Automated dose lowering techniques and/or adjustment according to patient size were utilized for this exam. Comparison: Comparison is made to chest radiograph 07/13/2018 FINDINGS: Lungs and pleura: Normal. Heart and pericardium: Heart size is normal. No pericardial effusion. Vessels: No evidence of pulmonary embolism. Mediastinum and neno: Unremarkable. Chest wall and lower neck: Unremarkable. Abdomen: Unremarkable. Bones: Unremarkable. IMPRESSION: No acute abnormality and in particular no evidence of pulmonary embolus. ACT 112: Negative or not required by law. Electronically signed by: Foster Monsalve M.D. 11/14/2023 1:46 PM
[2023-11-14 14:24] LABS: Appearance Urine Cloudy (Clear); Bacteria Urine Automated None Seen (None Seen); Bilirubin Urine Negative (Negative); Blood Urine 3+ (Negative); Cast Urine Automated 0-2 /lpf (0-2); Color Urine Yellow; Glucose Urine UA Negative (Negative); Ketones Urine Negative (Negative); Leukocyte Esterase Urine 3+ (Negative); Nitrite Urine Negative (Negative); Protein Urine 2+ (Negative); Specific Gravity Urine 1.007 (1.000-1.030); Urobilinogen Urine Negative (Negative); WBC Urine Automated >50 /hpf (0-5)
[2023-11-14] MEDS: NIFEdipine EXTENDED REL 30 MG TABCR PO STA (15:00)
--- NOTE | 2023-11-14 15:33 | History & Physical Report ---
Date of Service November 14, 2023 Assessment & Plan (1) Pre-eclampsia, : Plan: Patient reported some unusual symptoms this morning including a temperature and some chest pain she then presented to the emergency room because her blood pressures were slightly elevated during her assessment in the hospital her labs have been normal and her imaging studies normal there are no concerns for the chest pain by the emergency department During the course of her stay though her blood pressures have creeped up and her last 1 was 161/110 her labs are normal she does have a headache that is 7 out of 10 she has no epigastric pain no visual changes I think she needs the criteria for preeclampsia with severe features magnesium sulfate will be started additionally nifedipine extended release started and nifedipine acute dose started she will be admitted for 24 hours of magnesium and likely a longer stay afterwards discussed this with the patient discussed magnesium sulfate to reduce risk of seizures discussed the importance of a Parker catheter [id number] time and time reviewing imaging labs and coordinating care 55 minutes History of Present Illness Primary Care Provider: Simeon Serrano DO DARRELL Calculator Estimated Delivery Date Method Current WG Current Estimate 11/11/23 LMP (Certain) 38w 5d Other Estimates 11/10/23 Ultrasound #1 38w 6d LMP: 02/04/23 : 2 Full term: 1 Premature: 0 Total Number of Induced Abortions: 0 Total Number of Spontaneous Abortions: 0 Ectopics: 0 Multiple births: 0 Number of Living Children: 1 and Delivery Plans Hypothyroid-no current meds *Check TFTs Q4wks Previous complicated by pre-eclampsia Baby ASA daily @ 12 wk Allergies Allergy/AdvReac Type Severity Reaction Status Date / Time raw vegetable Allergy Severe THROAT Verified 11/09/23 08:42 SWELLS, HIVES pollen extracts Allergy Intermediate ITCHY, Verified 11/02/23 14:43 WATERY EYES, SNEEZING, CONGESTION RAW FRUITS Allergy Severe THROAT Uncoded 11/02/23 14:43 SWELLS, HIVES Home Medications Medication Instructions Recorded Confirmed Type 21-iron fu-folic acid 1 cap PO DAILY 03/25/23 11/14/23 History [ Complete] levothyroxine 75 mcg tablet 75 mcg PO DAILY #30 tabs 09/28/23 11/14/23 Rx fluticasone propionate 50 1 spray intranasal DIRECTED 11/02/23 11/14/23 History mcg/actuation nasal spray,suspension nifedipine 30 mg tablet,extended 30 mg PO DAILY #14 tabs 11/14/23 11/14/23 Rx release Patient History Medical History Hypothyroidism Ryan's disease Encounter for routine follow-up Encounter for routine gynecological examination Encounter for insertion subdermal contraceptive Asthma Secondary amenorrhea 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 Amenorrhea Brain bleed At Seizure Varicella vaccination Pre-eclampsia Gestational hypertension MTHFR gene mutation Hypothyroid Ryan's disease Surgical History No pertinent past surgical history Family History Other Cancer Diabetes Heart disease Hypertension Seizures Denies family history of Ovarian cancer Breast cancer Colorectal cancer Social History Smoking Status: Never smoker Second Hand Exposure: No; Do You Dip or Chew Tobacco: No; Hx Alcohol Use: No Hx Substance Use: No Preferred Language: Kenyan Communication Ability: Effective Show Dog Trainer Required: No Beliefs That Will Affect Care: None marital status: Single marital status details: Eboni Thompson (29) [phone] Current Living Situation: Family Current Living Situation Comment: lives with fob, daughter, cat-fob changing litter current occupational status: employed current occupation: [employer] Feels Safe at Home: Yes Assistive Devices: Contacts Physical Exam Constitutional: WD/WN, vitals as above well developed and well nourished Respiratory: normal respiratory effort, lungs clear to auscultation normal respiratory effort Cardiovascular: RRR, no murmur, no edema Gastrointestinal (Abdomen): normal bowel sounds, soft, nontender, no hepatosplenomegaly Results & Data Vital Signs (Past 12 Hours) Vital Signs Temp Pulse Pulse Resp BP BP Pulse Ox 11/14/23 14:55 66 14 161/110 H 99 11/14/23 14:42 138/109 H 11/14/23 14:32 151/110 H 11/14/23 14:21 65 16 140/108 H 99 11/14/23 13:16 71 11/14/23 13:15 61 18 142/100 H 100 11/14/23 12:59 98 11/14/23 12:25 97.5 F L 77 18 133/89 98 O2 Del Method 11/14/23 14:55 Room Air 11/14/23 14:42 11/14/23 14:32 11/14/23 14:21 Room Air 11/14/23 13:16 11/14/23 13:15 Room Air 11/14/23 12:59 Room Air 11/14/23 12:25 Room Air Coding Level of Care Code 49550 INT INP/OBS CARE 2MIN Diagnoses Pre-eclampsia, O14.95
[2023-11-14] MEDS: NIFEdipine 10 MG CAP PO STA (15:38)
[2023-11-14] MEDS: MAGNESIUM SULFATE / WTR 40 GM/1,000 ML BAG IV SCH (15:40)
[2023-11-14] MEDS: MAG SULFATE 4GM BOLUS FROM BAG IV ONE (15:45)
[2023-11-14] MEDS: LACTATED RINGER'S 1,000 ML IV SCH (17:06)
[2023-11-14] MEDS: ACETAMINOPHEN 325 MG TAB PO PRN (17:15)
[2023-11-15] MEDS: LEVOTHYROXINE SODIUM 75 MCG TABLET PO SCH (06:31)
[2023-11-15 07:07] LABS: Hematocrit (blood only) 40.2 % (37.0-47.0); Mean Corpuscular Hemoglobin 32.8 pg (25.0-34.0); Mean Corpuscular Hgb Conc 34.8 g/dL (32.0-36.0); Mean Corpuscular Volume 94.1 fL (80.0-100.0); Mean Platelet Volume 8.8 fL (9.4-12.4); Platelet Count 276 K/uL (130-400); RDW Coefficient of Variation 12.3 % (11.5-14.5); RDW Standard Deviation 42.4 fL (36.4-46.3); Red Blood Count 4.27 M/uL (4.20-5.40); White Blood Count 6.61 K/ul (4.8-10.8)
[2023-11-15 07:26] LABS: Albumin Globulin Ratio 1.2 (0.9-2); Albumin Level 3.5 gm/dl (3.4-5.0); BUN Creatinine Ratio 10.1 (10-20); Bilirubin Direct 0.1 mg/dl (0-0.2); Bilirubin,Total 0.4 mg/dl (0.2-1.0); Calcium 7.4 mg/dl (8.6-10.3); Est GFR (African American) 140.2 ml/min; Globulin 2.9 gm/dl (2.5-4.0); Potassium 3.6 mmol/L (3.5-5.1); Total Protein 6.4 gm/dl (6.0-8.3)
--- NOTE | 2023-11-15 08:18 | Obstetrical Progress Note ---
Date of Service November 15, 2023 Assessment & Plan Admission and Anticipated Discharge Date Admission Date: November 14, 2023 Subjective Since arrival in labor and delivery her blood pressures have ranged in the 1 00/70 to 90/60 range patient's headache is dramatically improved she has had fogginess with the magnesium and has had to be cut down to 1 g an hour at this stage I do not really think she has preeclampsia or at least a severe version of it as her pressures are too normal I am going to stop the magnesium prior to 24 hours as she does not feel well on it will observe her in labor and delivery for a period of time and then go from there Results & Data Vital Signs (Past 12 Hours) Vital Signs Temp Pulse Resp BP Pulse Ox 11/15/23 08:11 75 100 11/15/23 08:06 91 H 100 11/15/23 08:02 75 105/72 11/15/23 08:01 74 100 11/15/23 07:56 76 100 11/15/23 07:51 81 100 11/15/23 07:46 74 100 11/15/23 07:41 73 100 11/15/23 07:36 77 100 11/15/23 07:31 78 100 11/15/23 07:26 76 100 11/15/23 07:21 79 100 11/15/23 07:20 99.1 F 20 11/15/23 07:16 70 100 11/15/23 07:11 77 100 11/15/23 07:06 81 100 11/15/23 07:02 79 110/70 11/15/23 07:01 86 100 11/15/23 07:00 18 11/15/23 06:56 87 100 11/15/23 06:51 84 100 11/15/23 06:46 82 100 11/15/23 06:44 95 H 88 L 11/15/23 06:41 90 100 11/15/23 06:36 90 98 11/15/23 06:32 83 85 L 11/15/23 06:31 79 100 11/15/23 06:26 105 H 93 11/15/23 06:21 93 H 97 11/15/23 06:17 90 90 11/15/23 06:16 86 93 11/15/23 06:10 78 100 11/15/23 06:07 78 84 L 11/15/23 06:05 81 100 11/15/23 06:02 63 100/66 11/15/23 06:01 18 11/15/23 06:01 18 11/15/23 06:00 65 99 11/15/23 05:55 66 98 11/15/23 05:50 65 98 11/15/23 05:45 63 99 11/15/23 05:40 66 98 11/15/23 05:35 67 98 11/15/23 05:30 68 98 11/15/23 05:25 69 99 11/15/23 05:20 72 99 11/15/23 05:15 68 99 11/15/23 05:10 73 98 11/15/23 05:05 66 100 11/15/23 05:02 61 104/66 11/15/23 05:00 16 11/15/23 05:00 72 99 11/15/23 04:55 67 99 11/15/23 04:50 73 99 11/15/23 04:45 72 99 11/15/23 04:40 67 99 11/15/23 04:35 68 99 11/15/23 04:30 68 100 11/15/23 04:25 67 100 11/15/23 04:20 67 100 11/15/23 04:15 71 100 11/15/23 04:10 80 100 11/15/23 04:05 88 100 11/15/23 04:02 82 103/70 11/15/23 04:00 16 11/15/23 04:00 16 11/15/23 04:00 75 100 11/15/23 03:55 75 100 11/15/23 03:50 87 100 11/15/23 03:45 75 100 11/15/23 03:40 76 100 11/15/23 03:35 79 100 11/15/23 03:30 88 100 11/15/23 03:25 67 100 11/15/23 03:20 79 100 11/15/23 03:15 83 100 11/15/23 03:10 80 100 11/15/23 03:05 78 100 11/15/23 03:02 75 100/67 11/15/23 03:00 97.9 F 16 11/15/23 03:00 16 11/15/23 03:00 71 100 11/15/23 02:55 88 100 11/15/23 02:50 82 98 11/15/23 02:45 71 96 11/15/23 02:40 69 95 11/15/23 02:35 72 95 11/15/23 02:30 71 94 11/15/23 02:25 70 95 11/15/23 02:20 70 96 11/15/23 02:15 66 96 11/15/23 02:10 72 95 11/15/23 02:05 71 96 11/15/23 02:02 92 H 98/56 L 11/15/23 02:00 16 11/15/23 02:00 16 11/15/23 02:00 69 94 11/15/23 01:55 66 95 11/15/23 01:50 72 95 11/15/23 01:45 66 95 11/15/23 01:40 68 96 11/15/23 01:35 75 95 11/15/23 01:30 76 94 11/15/23 01:25 73 95 11/15/23 01:20 72 95 11/15/23 01:15 73 95 11/15/23 01:10 72 95 11/15/23 01:05 72 96 11/15/23 01:02 67 94/60 L 11/15/23 01:00 18 11/15/23 01:00 18 11/15/23 01:00 71 96 11/15/23 00:55 69 97 11/15/23 00:50 68 96 11/15/23 00:45 66 99 11/15/23 00:40 78 100 11/15/23 00:35 87 100 11/15/23 00:30 85 100 11/15/23 00:25 93 H 100 11/15/23 00:24 102 H 89 L 11/15/23 00:20 91 H 100 11/15/23 00:15 76 100 11/15/23 00:10 79 100 11/15/23 00:05 81 99 11/15/23 00:02 83 110/73 11/15/23 00:00 16 11/15/23 00:00 16 11/15/23 00:00 89 99 11/14/23 23:55 85 100 11/14/23 23:50 82 100 11/14/23 23:45 79 99 11/14/23 23:40 82 97 11/14/23 23:35 79 100 11/14/23 23:30 82 100 11/14/23 23:25 95 H 100 11/14/23 23:20 98 H 100 11/14/23 23:15 89 100 11/14/23 23:10 98 H 100 11/14/23 23:05 97 H 100 11/14/23 23:02 93 H 110/75 11/14/23 23:00 97.5 F L 16 11/14/23 23:00 16 11/14/23 23:00 92 H 100 11/14/23 22:55 91 H 100 11/14/23 22:50 85 100 11/14/23 22:45 86 100 11/14/23 22:40 94 H 100 11/14/23 22:35 95 H 100 11/14/23 22:30 90 100 11/14/23 22:25 87 100 11/14/23 22:20 90 100 11/14/23 22:15 90 99 11/14/23 22:10 91 H 100 11/14/23 22:05 90 100 11/14/23 22:02 88 101/68 11/14/23 22:00 18 11/14/23 22:00 18 11/14/23 22:00 95 H 100 11/14/23 21:55 90 100 11/14/23 21:50 94 H 100 11/14/23 21:45 99 H 100 11/14/23 21:40 93 H 100 11/14/23 21:35 96 H 100 11/14/23 21:30 102 H 100 11/14/23 21:25 106 H 100 11/14/23 21:20 114 H 100 11/14/23 21:15 84 100 11/14/23 21:10 130 H 100 11/14/23 21:05 93 H 100 11/14/23 21:02 82 104/66 11/14/23 21:00 16 11/14/23 21:00 86 100 11/14/23 20:55 96 H 100 11/14/23 20:50 89 100 11/14/23 20:45 60 98 11/14/23 20:40 75 97 11/14/23 20:35 82 96 11/14/23 20:30 69 94 11/14/23 20:25 65 95 11/14/23 20:20 68 93 PG Care Time/CCT Total # of Minutes Spent Total Time Spent with Patient: Total time spent is greater than 50% in coordination of care (as documented) at patient's floor/unit and/or counseling patient: Coding Level of Care Code 32520 SUB INP/OBS CARE 2/35MIN
[2023-11-15] MEDS: PRENATAL VITAMIN 1 TAB PO SCH (08:42)
[2023-11-15] MEDS: IBUPROFEN 600 MG TAB PO PRN (10:47)
--- NOTE | 2023-11-15 14:02 | Obstetrical Progress Note ---
Date of Service November 15, 2023 Assessment & Plan Admission and Anticipated Discharge Date Admission Date: November 14, 2023 Subjective Patient continues to feel good she has no headache at all now her blood pres sures are in the 110 and 70 range I do not think she has true preeclampsia her labs have all been normal I think some of her blood pressure elevation yesterday was related to stress and some pain she was having her breast at this stage he would like to undergo I do not think it would be indicated to have a blood pressure medication sent home as her pressures are too low we will have her have a blood pressure check Thursday or Thursday in the office Results & Data Vital Signs (Past 12 Hours) Vital Signs Temp Pulse Resp BP Pulse Ox 11/15/23 10:47 98.2 F 88 20 116/78 11/15/23 09:22 210 H 73 L 11/15/23 09:12 78 100 11/15/23 09:07 73 100 11/15/23 09:02 80 L 11/15/23 09:02 135 H 11/15/23 09:02 79 116/83 11/15/23 08:59 88 91 11/15/23 08:57 199 H 84 L 11/15/23 08:54 219 H 88 L 11/15/23 08:52 182 H 90 11/15/23 08:48 81 85 L 11/15/23 08:46 77 100 11/15/23 08:41 66 100 11/15/23 08:36 72 100 11/15/23 08:31 69 100 11/15/23 08:26 78 100 11/15/23 08:21 72 100 11/15/23 08:16 79 100 11/15/23 08:11 75 100 11/15/23 08:06 91 H 100 11/15/23 08:02 75 105/72 11/15/23 08:01 74 100 11/15/23 08:00 18 11/15/23 07:56 76 100 11/15/23 07:51 81 100 11/15/23 07:46 74 100 11/15/23 07:41 73 100 11/15/23 07:36 77 100 11/15/23 07:31 78 100 11/15/23 07:26 76 100 11/15/23 07:21 79 100 11/15/23 07:20 99.1 F 20 11/15/23 07:16 70 100 11/15/23 07:11 77 100 11/15/23 07:06 81 100 11/15/23 07:02 79 110/70 11/15/23 07:01 86 100 11/15/23 07:00 18 11/15/23 06:56 87 100 11/15/23 06:51 84 100 11/15/23 06:46 82 100 11/15/23 06:44 95 H 88 L 11/15/23 06:41 90 100 11/15/23 06:36 90 98 11/15/23 06:32 83 85 L 11/15/23 06:31 79 100 11/15/23 06:26 105 H 93 11/15/23 06:21 93 H 97 11/15/23 06:17 90 90 11/15/23 06:16 86 93 11/15/23 06:10 78 100 11/15/23 06:07 78 84 L 11/15/23 06:05 81 100 11/15/23 06:02 63 100/66 11/15/23 06:01 18 11/15/23 06:01 18 11/15/23 06:00 65 99 11/15/23 05:55 66 98 11/15/23 05:50 65 98 11/15/23 05:45 63 99 11/15/23 05:40 66 98 11/15/23 05:35 67 98 11/15/23 05:30 68 98 11/15/23 05:25 69 99 11/15/23 05:20 72 99 11/15/23 05:15 68 99 11/15/23 05:10 73 98 11/15/23 05:05 66 100 11/15/23 05:02 61 104/66 11/15/23 05:00 16 11/15/23 05:00 72 99 11/15/23 04:55 67 99 11/15/23 04:50 73 99 11/15/23 04:45 72 99 11/15/23 04:40 67 99 11/15/23 04:35 68 99 11/15/23 04:30 68 100 11/15/23 04:25 67 100 11/15/23 04:20 67 100 11/15/23 04:15 71 100 11/15/23 04:10 80 100 11/15/23 04:05 88 100 11/15/23 04:02 82 103/70 11/15/23 04:00 16 11/15/23 04:00 16 11/15/23 04:00 75 100 11/15/23 03:55 75 100 11/15/23 03:50 87 100 11/15/23 03:45 75 100 11/15/23 03:40 76 100 11/15/23 03:35 79 100 11/15/23 03:30 88 11/15/23 03:25 67 100 11/15/23 03:20 79 100 11/15/23 03:15 83 100 11/15/23 03:10 80 100 11/15/23 03:05 78 100 11/15/23 03:02 75 100/67 11/15/23 03:00 97.9 F 16 11/15/23 03:00 16 11/15/23 03:00 71 100 11/15/23 02:55 88 100 11/15/23 02:50 82 98 11/15/23 02:45 71 96 11/15/23 02:40 69 95 11/15/23 02:35 72 95 11/15/23 02:30 71 94 11/15/23 02:25 70 95 11/15/23 02:20 70 96 11/15/23 02:15 66 96 11/15/23 02:10 72 95 11/15/23 02:05 71 96 11/15/23 02:02 92 H 98/56 L PG Care Time/CCT Total # of Minutes Spent Total Time Spent with Patient: Total time spent is greater than 50% in coordination of care (as documented) at patient's floor/unit and/or counseling patient: Coding Level of Care Code None
--- NOTE | 2023-11-19 16:51 | Discharge Summary ---
Date of Service November 19, 2023 Admission HPI Per Admitting Provider DARRELL Calculator Estimated Delivery Date Method Current WG Current Estimate 11/11/23 LMP (Certain) 38w 5d Other Estimates 11/10/23 Ultrasound #1 38w 6d LMP: 02/04/23 : 2 Full term: 1 Premature: 0 Total Number of Induced Abortions: 0 Total Number of Spontaneous Abortions: 0 Ectopics: 0 Multiple births: 0 Number of Living Children: 1 and Delivery Plans Hypothyroid-no current meds *Check TFTs Q4wks Previous complicated by pre-eclampsia Baby ASA daily @ 12 wk Admission Exam (Per Admitting) Constitutional WD/WN, vitals as above well developed and well nourished Respiratory normal respiratory effort, lungs clear to auscultation normal respiratory effort Cardiovascular RRR, no murmur, no edema Gastrointestinal (Abdomen) normal bowel sounds, soft, nontender, no hepatosplenomegaly Discharge Data Consultations 11/14/23 15:00 ED Decision to Admit Stat Hospital Course (1) Pre-eclampsia, : Patient reported some unusual symptoms this morning including a temperature and some chest pain she then presented to the emergency room because her blood pressures were slightly elevated during her assessment in the hospital her labs have been normal and her imaging studies normal there are no concerns for the chest pain by the emergency department During the course of her stay though her blood pressures have creeped up and her last 1 was 161/110 her labs are normal she does have a headache that is 7 out of 10 she has no epigastric pain no visual changes I think she needs the criteria for preeclampsia with severe features magnesium sulfate will be started additionally nifedipine extended release started and nifedipine acute dose started she will be admitted for 24 hours of magnesium and likely a longer stay afterwards discussed this with the patient discussed magnesium sulfate to reduce risk of seizures discussed the importance of a Parker catheter [id number] time and time reviewing imaging labs and coordinating care 55 minutes Note after 24 hours of monitoring of blood pressures had returned to normal even with a few hours of starting the magnesium she was somewhat anxious in the ER I believe this played a role in her blood pressure but his most recent reading was 117/85 patient was discharged home not on antihypertensives but told to follow- up in the office early in the week Coding Level of Care Code None Diagnoses Pre-eclampsia, O14.95
== END 2023-11-15 14:47 | disposition home or self-care (01) | DRG 776 ==
LOC: ED 12:17 → 4S1 15:16